=== PATIENT | female | born 1960 | race Caucasian/White ===

== ENCOUNTER 2017-12-30 18:23 | Inpatient (IN) | payer OTHER, MEDICAID ==
[~2017-12-30] VITALS: Ht 162.6 cm; Wt 65.3 kg
--- NOTE | 2017-12-30 18:40 | NUR ---
bb family for psych eval; sent by dr rice. increasing anxiety, restless. rr is even and unlabored with nad noted. skin is warm and dry. awaiting md for eval.
--- NOTE | 2017-12-30 18:50 | NUR ---
PATIENT UNABLE TO URINATE AT THIS MOMENT, ARIELLE LARSON MADE AWARE.
[2017-12-30 18:56] LABS: BASOPHILS % (AUTO) 0.6 % (0.0-2.0); EOSINOPHILS % (AUTO) 3.4 % (0.0-6.0); HEMATOCRIT 35 % (33-45); HEMOGLOBIN 12.2 g/dL (11.5-14.8); LYMPHOCYTES % (AUTO) 38.2 % (20.0-44.0); MEAN CORPUSCULAR HEMOGLOBIN 32 PG (26.0-33.0); MEAN CORPUSCULAR HGB CONC 35 g/dl (31.0-36.0); MEAN CORPUSCULAR VOLUME 91 fL (82-100); MONOCYTES # (AUTO) 0.5 /CMM (0.1-1.30); MONOCYTES % (AUTO) 6.9 % (2.0-12.0); NEUTROPHILS # (AUTO) 4.1 /CMM (1.8-8.9); NEUTROPHILS % (AUTO) 50.9 % (43.0-81.0); PLATELET COUNT (AUTO) 232 /CMM (150-450); RDW COEFFICIENT OF VARIATION 13.4 (11.5-15.0); RED BLOOD CELL COUNT(AUTO) 3.83 MIL/uL (4.0-5.2); WHITE BLOOD COUNT (AUTO) 7.9 K/uL (4.3-11.0)
[2017-12-30 19:12] LABS: ALANINE AMINOTRANSFERASE 59 U/L (12-78); ALBUMIN 3.4 g/dL (3.4-5.0); ALCOHOL, BLOOD < 3 mg/dL (0-0); ALKALINE PHOSPHATASE 87 U/L (46-116); ASPARTATE AMINOTRANSFERASE 28 U/L (15-37); BILIRUBIN,DIRECT 0.1 mg/dL (0.0-0.2); BILIRUBIN,TOTAL 0.3 mg/dL (0.2-1.0); CALCIUM, SERUM 9.1 mg/dL (8.5-10.1); CARBON DIOXIDE 31 mmol/L (21-32); CHLORIDE 104 mmol/L (98-107); CREATININE 0.5 mg/dL (0.6-1.3); GLUCOSE 187 mg/dL (74-106); POTASSIUM 3.5 mmol/L (3.5-5.1); SODIUM SERUM 137 mmol/L (136-145); TOTAL PROTEIN, SERUM 6.5 g/dL (6.4-8.2); UREA NITROGEN, BLOOD 25 mg/dL (7-18)
--- NOTE | 2017-12-30 19:13 | NUR ---
REPORT GIVEN TO MIGUEL ANGEL RN'S FOR DORIAN.
[2017-12-30 19:14] LABS: ACETAMINOPHEN 0 ug/ml (10-30)
--- NOTE | 2017-12-30 19:29 | NUR ---
PER RHIANNON MOMIN, PT IS BEING ADMITTED TO [facility]. RHIANNON MOMIN AND Laureen FROST PA-C ARE AWARE THAT THE PT HAS NOT BEEN ABLE TO GIVE A URINE SAMPLE.
--- NOTE | 2017-12-30 19:35 | NUR ---
PT IS ASSIGNED TO 219-1, DX: PSYCHOSIS NOS, ACCEPTING PSYCHIATRIST: DR. CABRALES.
--- NOTE | 2017-12-30 19:45 | NUR ---
GIVEN REPORT TO MAMADOU MAYFIELD [facility]
--- NOTE | 2017-12-30 20:01 | NUR ---
STATED," WILL FAX OVER PERSONAL MEDS FROM FACILITY." NO FAX RECEIVED.
[2017-12-30] MEDS ORDERED: DONE10TA11 PO (20:24)
[2017-12-30] MEDS ORDERED: QUET25TA PO ×2 (20:24)
[2017-12-30] MEDS ORDERED: ATOR40TA PO (20:24)
[2017-12-30] MEDS ORDERED: ACET-2605 PO (20:24)
[2017-12-30] MEDS ORDERED: INSU100V27 SQ (20:24)
[2017-12-30] MEDS ORDERED: GABA-534 PO (20:24)
[2017-12-30] MEDS ORDERED: VENL150C2 PO (20:24)
[2017-12-30] MEDS ORDERED: TRAZ-182 PO ×2 (20:24)
[2017-12-30] MEDS ORDERED: DIVA125C PO (20:24)
[2017-12-30] MEDS ORDERED: IRBE300T19 PO (20:24)
[2017-12-30] MEDS ORDERED: ACETAMINOPHEN 325 MG TABLET PO PRN (21:00)
[2017-12-30] MEDS ORDERED: MAGNESIUM HYDROXIDE 30 ML UDC PO PRN (21:00)
[2017-12-30] MEDS ORDERED: MAG HYDROX/AL HYDROX/SIMETH 30 ML UDC PO PRN (21:00)
[2017-12-31] MEDS: TEMAZEPAM 7.5 MG CAPSULE PO PRN (00:19)
--- NOTE | 2017-12-31 01:14 | NUR ---
ADMITTED THIS 57 YEARS OLD FEMALE FROM [facility] PATIENT WAS GOT ADMITTED FOR INCREASED AGITATIONS AND AGGRESSIVE BEHAVIOR TOWARDS THE STAFF IN BOARDING CARE. PATIENT IS VOLUNTARY ADMITTED DENIES ANY PAIN OR DISCOMFORT AT THIS TIME ABLE TO FOLLOW THE DIRECTIONS . PATIENT ON BED RESTING SLEEPING PILLS ADMINISTERED PRESCRIBED PATIENT HAS HER OWN INSULIN PUMP ON HER RIGHT SIDE, ACCORDING TO THE ITS RELEASED INSULIN EVERY HOURS.BLOOD SUGAR IS DONE SUGAR IS NORMAL PATIENT IS SLEEPING AT THIS TIME WILL CONTINUES TO MONITOR THE PATIENT FOR SAFETY AND FALL PRECAUTIONS
--- NOTE | 2017-12-31 06:09 | NUR ---
PATIENT HAS A INSULIN PUMP ON HER RIGHT UPPER ARM WHICH IS GIVEN PATIENT EVERY HOUR INSULIN AUTOMATIC ACCORDING TO THE INSULIN PUMP WILL STOP TODAY AT 2 PM THEN NURSE HAVE TO GIVE PATIENT SLIDING SCALE PER PROTOCOL PATIENT SAID IF YOU HAVE ANY QUESTIONS PLEASE CALL HIM HIS NAME IS CAMERON # IS [phone]
--- NOTE | 2017-12-31 06:32 | NUR ---
[id number]: BLOOD SUGAR IS 249 MG/DL, PT HAS INSULIN PUMP ON RIGHT UPPER ARM.
[2017-12-31 07:23] LABS: CHOLESTEROL 160 mg/dL (<200); HDL CHOLESTEROL 75 mg/dL (40-60); LDL 77 mg/dL (0-99); TRIGLYCERIDES 52 mg/dL (30-150)
[2017-12-31 07:28] LABS: CALCIUM, SERUM 8.4 mg/dL (8.5-10.1); CARBON DIOXIDE 26 mmol/L (21-32); CHLORIDE 105 mmol/L (98-107); CREATININE 0.6 mg/dL (0.6-1.3); GLUCOSE 243 mg/dL (74-106); POTASSIUM 3.7 mmol/L (3.5-5.1); SODIUM SERUM 139 mmol/L (136-145); UREA NITROGEN, BLOOD 20 mg/dL (7-18)
[2017-12-31 07:31] LABS: BASOPHILS % (AUTO) 0.3 % (0.0-2.0); EOSINOPHILS % (AUTO) 3.6 % (0.0-6.0); HEMATOCRIT 37 % (33-45); HEMOGLOBIN 12.5 g/dL (11.5-14.8); LYMPHOCYTES # (AUTO) 2.2 /CMM (0.8-4.8); LYMPHOCYTES % (AUTO) 33.3 % (20.0-44.0); MEAN CORPUSCULAR HEMOGLOBIN 31 PG (26.0-33.0); MEAN CORPUSCULAR HGB CONC 34 g/dl (31.0-36.0); MEAN CORPUSCULAR VOLUME 91 fL (82-100); MONOCYTES # (AUTO) 0.5 /CMM (0.1-1.30); MONOCYTES % (AUTO) 7.4 % (2.0-12.0); NEUTROPHILS # (AUTO) 3.7 /CMM (1.8-8.9); NEUTROPHILS % (AUTO) 55.4 % (43.0-81.0); PLATELET COUNT (AUTO) 228 /CMM (150-450); RED BLOOD CELL COUNT(AUTO) 4.03 MIL/uL (4.0-5.2); WHITE BLOOD COUNT (AUTO) 6.6 K/uL (4.3-11.0)
[2017-12-31 07:32] LABS: TROPONIN I < 0.017 ng/mL (0.00-0.056)
[2017-12-31 08:00] VITALS: BP 124/81
[2017-12-31] MEDS: LORAZEPAM 0.5 MG TABLET PO PRN ×2 (11:20→20:52)
--- NOTE | 2017-12-31 11:20 | NUR ---
[id number]: GAVE ATIVAN 0.5 MG PO ANXIETY UPON PT REQUEST AND WILL CONTINUE TO MONITOR FOR EFFECTIVENESS OF MEDICATION
--- NOTE | 2017-12-31 12:11 | NUR ---
[id number]: BLOOD SUGAR IS 369 MG/DL AND HAS INSULIN PUMP.
--- NOTE | 2017-12-31 12:38 | NUR ---
SW spoke to nAeesh James ([phone]), pt's , and discussed the pt and how she has been adjusting. SW informed him about visiting hours, the medication list and went over the assessment of the pt with him to verify the accuracy of the information.
[2017-12-31] MEDS: DIVALPROEX SODIUM 125 MG CAP.SPRINK PO SCH ×2 (12:41→17:42)
[2017-12-31] MEDS: QUETIAPINE FUMARATE 25 MG TABLET PO SCH ×2 (12:42→17:41)
[2017-12-31] MEDS: busPIRone 5 MG TABLET PO SCH ×2 (12:42→17:42)
--- NOTE | 2017-12-31 14:00 | NUR ---
[id number] NOTIFIED DR. ROGERS ABOUT CHEST X-RAY AND CT OF THE HEAD RESULTS. NO NEW ORDERS GIVEN AT THIS TIME
--- NOTE | 2017-12-31 14:12 | NUR ---
[id number]: NOTIFIED DR. ROGERS REGARDING PT HAVING AN INSULIN PUMP. DR. ROGERS WILL BE TURN THE INSULIN PUMP OFF AND PLACE PT ON MODERATE INSULIN.
--- NOTE | 2017-12-31 14:51 | NUR ---
Initial Discharge Plan: Pt currently resides at [facility] located at [address] [place] [id number]; ([phone]). Per pt and her DPOA, they would like the pt to return to her board and care. SW will work with the pt, the DPOA and the MD regarding appropriate discharge plans. SW will form a safe and proper discharge.
[2017-12-31] MEDS ORDERED: DEXTROSE 50%-WATER 50 ML DISP.SYRIN IV PRN (15:00)
[2017-12-31 16:17] VITALS: BP 116/79
[2017-12-31] MEDS ORDERED: DIVALPROEX SODIUM 125 MG CAP.SPRINK PO SCH (17:00)
[2017-12-31] MEDS: INSULIN REGULAR, HUMAN 100 UNIT/ML 3 ML VIAL SQ PRN ×2 (17:26→21:38)
--- NOTE | 2017-12-31 17:26 | NUR ---
[id number]: BLOOD SUGAR IS 472 MG/DL AND GAVE 15 UNITS OF REGULAR INSULIN. NOTIFIED DR. ROGERS.
[2017-12-31] MEDS: BLOOD SUGAR DIAGNOSTIC 1 EACH STRIP VI SCH ×2 (17:33→21:32)
[2017-12-31] MEDS: GABAPENTIN 300 MG CAPSULE PO SCH (17:42)
--- NOTE | 2017-12-31 18:30 | NUR ---
[id number]: TOOK PT'S INSULIN PUMP HOME.
[2017-12-31 20:59] VITALS: BP 96/60
[2017-12-31] MEDS: ATORVASTATIN 40 MG TABLET PO SCH (21:22)
[2017-12-31 23:00] VITALS: BP 110/65
[2018-01-01] MEDS: TEMAZEPAM 7.5 MG CAPSULE PO PRN (00:18)
[2018-01-01] MEDS: BLOOD SUGAR DIAGNOSTIC 1 EACH STRIP VI SCH ×4 (07:55→22:12)
[2018-01-01] MEDS: INSULIN REGULAR, HUMAN 100 UNIT/ML 3 ML VIAL SQ PRN ×3 (07:58→17:44)
[2018-01-01 08:00] VITALS: BP 103/63
[2018-01-01] MEDS: DIVALPROEX SODIUM 125 MG CAP.SPRINK PO SCH ×4 (08:20→16:14)
[2018-01-01] MEDS: busPIRone 5 MG TABLET PO SCH ×3 (08:20→16:14)
[2018-01-01] MEDS: GABAPENTIN 300 MG CAPSULE PO SCH ×3 (08:20→16:14)
[2018-01-01] MEDS: QUETIAPINE FUMARATE 25 MG TABLET PO SCH ×3 (08:20→16:14)
[2018-01-01] MEDS ORDERED: IRBESARTAN (150MG) 150 MG TABLET PO SCH (08:30)
--- NOTE | 2018-01-01 08:55 | NUR ---
SW spoke to Megha Copeland ([phone]), pt's dental insurance biller, and discussed sending daily clinicals and calling once the pt is discharged so that transportation can be set up.
[2018-01-01] MEDS: VALSARTAN 80 MG TABLET PO SCH (09:00)
--- NOTE | 2018-01-01 09:21 | NUR ---
BEBE faxed a clinical review to Megha Kemp ([phone]), pt's medical insurance verifier at [facility], at the fax #: [phone].
[2018-01-01 16:00] VITALS: BP 101/64
--- NOTE | 2018-01-01 19:55 | NUR ---
GPS RN NOTES PT. AT BED SIDE , FEED YOGURT , SHOWER GIVEN TO THE PATIENT ALL HYGINE PROVIDED , ALL NEEDS ATTENDED AND ANTICIPATED , WILL CONTINUTY OF CARE.
[2018-01-01] MEDS: ATORVASTATIN 40 MG TABLET PO SCH (21:46)
[2018-01-01 21:53] VITALS: BP 90/55
[2018-01-01] MEDS: *INSULIN REGULAR(HUMULIN R)HUM 100 UNIT/ML VIAL SQ PRN (22:09)
[2018-01-01] MEDS ORDERED: INSULIN GLARGINE, 100 UNIT/ML CARTRIDGE SQ ONE (22:17)
[2018-01-01] MEDS: INSULIN GLARGINE, 100 UNIT/ML CARTRIDGE SQ SCH (22:33)
[2018-01-01 23:00] VITALS: BP 105/62
[2018-01-02] MEDS: TEMAZEPAM 7.5 MG CAPSULE PO PRN (02:02)
[2018-01-02] MEDS: LORAZEPAM 0.5 MG TABLET PO PRN ×2 (06:02→13:34)
--- NOTE | 2018-01-02 06:12 | NUR ---
GPS RN NOTES PT. NOTED TO VERY ANXIOUS AGGRESSIVE VERBALLY ABUSUIVE, KICKING HITTING STAFF, TRYING TO GET OUT THE BED, BANGING ARMS AND LEGS WITH SIDE RAIL OF THE BED, NOT FOLLOWING ANY REDIRECTIONS, ATIVAN 0.5 MG PO PRN GIVEN , WILL CONTINUE TO MONITOR.
--- NOTE | 2018-01-02 06:46 | NUR ---
GPS RN NOTES DURING SHIFT PT. BLOOD SUGAR AT 2200 # BS 586 MG/DL , 1O U / RGULAR INSULLIN AND 15 UNITS OF LANTUS GIVEN , RECHECK BLOOD SUGAR AT 0011 # BS 367 MG/DL , RECHECK BLOOD SUGAR AT 0306 # BS 0209 , RECHECK BLOOD SUGAR AT 0545 # BS 156 MG/DL, NO ACUTE DISTRESS NOTED DENIES ANY DISCOMFORT, CHARGE NURSE MADE AWARE , ENDORSE TO NEXT SHIFT FOR CONTINUTY OF CARE.
[2018-01-02] MEDS: INSULIN REGULAR, HUMAN 100 UNIT/ML 3 ML VIAL SQ PRN ×3 (07:54→17:31)
[2018-01-02] MEDS: BLOOD SUGAR DIAGNOSTIC 1 EACH STRIP VI SCH ×4 (07:55→22:29)
[2018-01-02] MEDS: QUETIAPINE FUMARATE 25 MG TABLET PO SCH ×3 (08:12→16:05)
[2018-01-02] MEDS: VALSARTAN 80 MG TABLET PO SCH (08:12)
[2018-01-02] MEDS: GABAPENTIN 300 MG CAPSULE PO SCH ×3 (08:12→16:05)
[2018-01-02] MEDS: busPIRone 5 MG TABLET PO SCH ×3 (08:12→16:05)
[2018-01-02] MEDS: DIVALPROEX SODIUM 125 MG CAP.SPRINK PO SCH ×3 (08:12→16:05)
[2018-01-02 08:24] VITALS: BP 123/72
--- NOTE | 2018-01-02 08:45 | NUR ---
GPS RN NOTE: PT IN THE ROOM IN THE CHAIR, COMPLIANT WITH MEDICATIONS, BS 166MG/DL 2 UNITS GIVEN PT ATE BREAKFAST, CONFUSED , RESTLESS , WINGING HER LEGS .ALL HYGIENE PROVIDED WITH 1;1 SITTER .
--- NOTE | 2018-01-02 10:12 | NUR ---
GPS RN NOTE: PT TOOK A SHOWER WITH A HELP OF 1:1 SITTER
--- NOTE | 2018-01-02 11:36 | NUR ---
GPS RN NOTE: PT WALK WITH 1:1 SITTER,SEEN BY PT NO PT NEEDED ONLY WALK WITH SITTER, PT CALM AT THIS TIME WILL CONTINUE MONITORING.
--- NOTE | 2018-01-02 12:04 | NUR ---
SW spoke to Aneesh James ([phone]), pt's , yesterday and answered some questions that he had regarding his .
--- NOTE | 2018-01-02 12:05 | NUR ---
BEBE called the pt's , Aneesh James ([phone]), and provided him with more information and assured him that the concerns he listed will be addressed.
--- NOTE | 2018-01-02 12:05 | NUR ---
BEBE faxed a clinical review to Megha Kemp ([phone]), pt's insurance agent at [facility], at the fax #: [phone].
--- NOTE | 2018-01-02 13:37 | NUR ---
GPS RN NOTE: PT IN THE ROOM CRYING, RESTLESS, UPSET, ATIVAN 0.5 MG PO PRN GIVEN WILL CONTINUE MONITORING
[2018-01-02 16:00] VITALS: BP 119/62
[2018-01-02 20:00] VITALS: BP 118/65
[2018-01-02] MEDS: ATORVASTATIN 40 MG TABLET PO SCH (22:00)
[2018-01-02] MEDS: INSULIN GLARGINE, 100 UNIT/ML CARTRIDGE SQ SCH (22:29)
[2018-01-03] MEDS: BLOOD SUGAR DIAGNOSTIC 1 EACH STRIP VI SCH ×4 (07:44→22:32)
[2018-01-03 08:00] VITALS: BP 144/67
[2018-01-03] MEDS: VALSARTAN 80 MG TABLET PO SCH (08:11)
[2018-01-03] MEDS: GABAPENTIN 300 MG CAPSULE PO SCH ×3 (08:11→16:42)
[2018-01-03] MEDS: busPIRone 5 MG TABLET PO SCH ×3 (08:11→16:42)
[2018-01-03] MEDS: DIVALPROEX SODIUM 125 MG CAP.SPRINK PO SCH ×3 (08:11→16:42)
[2018-01-03] MEDS: QUETIAPINE FUMARATE 25 MG TABLET PO SCH ×3 (08:12→16:42)
[2018-01-03] MEDS: INSULIN REGULAR, HUMAN 100 UNIT/ML 3 ML VIAL SQ PRN ×2 (08:19→12:13)
--- NOTE | 2018-01-03 11:44 | NUR ---
UR Note: BEBE faxed a clinical review to Megha Kemp ([phone]), pt's deputy insurance commissioner at [facility], at the fax #: [phone].
[2018-01-03] MEDS: LORAZEPAM 0.5 MG TABLET PO PRN (14:06)
--- NOTE | 2018-01-03 14:10 | NUR ---
NURSING NOTE: PT STARTED SWINGING AT HER 1;1 SITTER FOR NO REASON, BECAME AGITATED FOR NO REASON, STATED SHE NEEDED SOMETHING TO HELP HER CALM DOWN, ATIVAN 0.5MG PO WAS GIVEN TO HELP CALM PT DOWN, VS STABLE, WILL CONTINUE TO MONITOR FOR SAFETY AND BEHAVIOR.
[2018-01-03 16:00] VITALS: BP 113/67
[2018-01-03 20:00] VITALS: BP 116/51
[2018-01-03] MEDS ORDERED: QUETIAPINE FUMARATE 25 MG TABLET PO SCH (22:00)
[2018-01-03] MEDS: ATORVASTATIN 40 MG TABLET PO SCH (22:32)
[2018-01-03] MEDS: TEMAZEPAM 7.5 MG CAPSULE PO PRN (22:32)
[2018-01-03] MEDS: INSULIN GLARGINE, 100 UNIT/ML CARTRIDGE SQ SCH (22:33)
[2018-01-03] MEDS: *INSULIN REGULAR(HUMULIN R)HUM 100 UNIT/ML VIAL SQ PRN (22:34)
[2018-01-04 07:04] LABS: BASOPHILS % (AUTO) 0.4 % (0.0-2.0); EOSINOPHILS % (AUTO) 3.7 % (0.0-6.0); HEMATOCRIT 40 % (33-45); HEMOGLOBIN 13.4 g/dL (11.5-14.8); LYMPHOCYTES # (AUTO) 1.9 /CMM (0.8-4.8); LYMPHOCYTES % (AUTO) 29.4 % (20.0-44.0); MEAN CORPUSCULAR HEMOGLOBIN 31 PG (26.0-33.0); MEAN CORPUSCULAR HGB CONC 33 g/dl (31.0-36.0); MEAN CORPUSCULAR VOLUME 93 fL (82-100); MONOCYTES # (AUTO) 0.5 /CMM (0.1-1.30); MONOCYTES % (AUTO) 7.8 % (2.0-12.0); NEUTROPHILS # (AUTO) 3.8 /CMM (1.8-8.9); NEUTROPHILS % (AUTO) 58.7 % (43.0-81.0); PLATELET COUNT (AUTO) 281 /CMM (150-450); RDW COEFFICIENT OF VARIATION 13.9 (11.5-15.0); RED BLOOD CELL COUNT(AUTO) 4.32 MIL/uL (4.0-5.2); WHITE BLOOD COUNT (AUTO) 6.4 K/uL (4.3-11.0)
[2018-01-04] MEDS: BLOOD SUGAR DIAGNOSTIC 1 EACH STRIP VI SCH ×4 (07:35→21:42)
[2018-01-04] MEDS: INSULIN REGULAR, HUMAN 100 UNIT/ML 3 ML VIAL SQ PRN ×3 (07:36→21:50)
[2018-01-04 07:49] LABS: ALBUMIN 3.7 g/dL (3.4-5.0); BILIRUBIN,TOTAL 0.9 mg/dL (0.2-1.0); CALCIUM, SERUM 8.8 mg/dL (8.5-10.1); CREATININE 0.6 mg/dL (0.6-1.3); MAGNESIUM 1.8 mg/dL (1.8-2.4); POTASSIUM 3.5 mmol/L (3.5-5.1); TOTAL PROTEIN, SERUM 7.1 g/dL (6.4-8.2)
[2018-01-04 08:00] VITALS: BP_SYST 119; BP_SYST 120; BP_DIAS 68; BP_DIAS 90
[2018-01-04] MEDS: DIVALPROEX SODIUM 125 MG CAP.SPRINK PO SCH ×3 (09:08→16:41)
[2018-01-04] MEDS: busPIRone 5 MG TABLET PO SCH ×3 (09:09→16:43)
[2018-01-04] MEDS: QUETIAPINE FUMARATE 25 MG TABLET PO SCH (09:09)
[2018-01-04] MEDS: VALSARTAN 80 MG TABLET PO SCH (09:09)
[2018-01-04] MEDS: GABAPENTIN 300 MG CAPSULE PO SCH ×3 (09:09→16:44)
--- NOTE | 2018-01-04 09:10 | NUR ---
Dr. Verdugo notified about the result of repeat EKG.
[2018-01-04] MEDS: BENZTROPINE MESYLATE (1 MG) 1 MG TABLET PO SCH ×2 (12:21→16:43)
[2018-01-04] MEDS: risperiDONE LIQUID 1 MG/ML ML PO SCH ×2 (14:04→16:44)
[2018-01-04 16:00] VITALS: BP 139/76
[2018-01-04 20:00] VITALS: BP 130/58
--- NOTE | 2018-01-04 20:00 | NUR ---
GPS RN NOTE: RECEIVED PATIENT AWAKE IN BED WITH AT BEDSIDE VISITING. PATIENT CONFUSED BUT CALM ORIENTED X1 WITHOUT COMPLAINT AND IN NO APPARENT DISTRESS, HAS 1:1 SITTER. WILL CONTINUE TO MONITOR Q15 FOR COMFORT AND SAFETY.
[2018-01-04] MEDS: INSULIN GLARGINE, 100 UNIT/ML CARTRIDGE SQ SCH (21:56)
[2018-01-04] MEDS: MAGNESIUM OXIDE 400 MG TABLET PO SCH (21:59)
[2018-01-04] MEDS: ATORVASTATIN 40 MG TABLET PO SCH (21:59)
--- NOTE | 2018-01-05 03:07 | NUR ---
ACCUCHECK 220 MG/DL @0300.
[2018-01-05] MEDS: LORAZEPAM 0.5 MG TABLET PO PRN (03:23)
--- NOTE | 2018-01-05 03:53 | NUR ---
AT 0300 PATIENT WOKE CONFUSED AND BEGAN YELLING AT 1:1 SITTER THAT SHE NEEDED TO GO HOME AND GO TO WORK. PATIENT GIVEN ATIVAN PRN 0323 FOR ANXIETY AFTER ATTEMPTS AT REALITY ORIENTATION FAILED. PATIENT HAS BECOME CALMER AND STATES SHE WANTS TO TRY TO GO BACK TO SLEEP. WILL CONTINUE TO MONITOR FOR COMFORT AND SAFETY.
[2018-01-05] MEDS: BLOOD SUGAR DIAGNOSTIC 1 EACH STRIP VI SCH ×4 (07:28→21:43)
[2018-01-05 08:00] VITALS: BP 100/63
[2018-01-05] MEDS: busPIRone 5 MG TABLET PO SCH ×3 (08:25→16:53)
[2018-01-05] MEDS: DIVALPROEX SODIUM 125 MG CAP.SPRINK PO SCH ×3 (08:25→16:53)
[2018-01-05] MEDS: VALSARTAN 80 MG TABLET PO SCH (08:25)
[2018-01-05] MEDS: BENZTROPINE MESYLATE (1 MG) 1 MG TABLET PO SCH ×3 (08:25→16:53)
[2018-01-05] MEDS: GABAPENTIN 300 MG CAPSULE PO SCH ×3 (08:25→16:53)
[2018-01-05] MEDS: risperiDONE LIQUID 1 MG/ML ML PO SCH ×3 (08:33→16:56)
[2018-01-05] MEDS: INSULIN REGULAR, HUMAN 100 UNIT/ML 3 ML VIAL SQ PRN ×3 (08:33→17:39)
[2018-01-05 15:59] VITALS: BP 100/69
--- NOTE | 2018-01-05 19:31 | NUR ---
GPS/RN-NOTES F/U WITH RESPIRATORY REGARDING THE EKG ORDER. PER LUCÍA (RESPIRATORY STAFF) HE WILL SEND THE STAFF TO MAKE IT DONE. ENDORSE TO PALLIATIVE CARE PHYSICIAN FOR F/U AND CONTINUITY OF CARE.
--- NOTE | 2018-01-05 20:11 | NUR ---
GPS-RN PATIENT REFUSED EKG, PATIENT IS VERY COMBATIVE, HITTING AND KICKING AT STAFF & RT. EXPLAINED RISKS AND BENEFITS. OFFERED X3, WILL NOTIFY MD. CHARGE NURSE MADE AWARE.
[2018-01-05 20:25] VITALS: BP 139/69
[2018-01-05] MEDS: MAGNESIUM OXIDE 400 MG TABLET PO SCH (21:40)
[2018-01-05] MEDS: ATORVASTATIN 40 MG TABLET PO SCH (21:40)
[2018-01-05] MEDS: INSULIN GLARGINE, 100 UNIT/ML CARTRIDGE SQ SCH (21:48)
[2018-01-05] MEDS: TEMAZEPAM 7.5 MG CAPSULE PO PRN (21:57)
[2018-01-06] MEDS: BLOOD SUGAR DIAGNOSTIC 1 EACH STRIP VI SCH ×4 (07:52→22:15)
[2018-01-06] MEDS: INSULIN REGULAR, HUMAN 100 UNIT/ML 3 ML VIAL SQ PRN ×2 (08:56→12:03)
[2018-01-06] MEDS: busPIRone 5 MG TABLET PO SCH ×3 (08:57→17:12)
[2018-01-06] MEDS: GABAPENTIN 300 MG CAPSULE PO SCH ×3 (08:57→17:12)
[2018-01-06] MEDS: BENZTROPINE MESYLATE (1 MG) 1 MG TABLET PO SCH ×3 (08:57→17:12)
[2018-01-06] MEDS: DIVALPROEX SODIUM 125 MG CAP.SPRINK PO SCH ×3 (09:00→17:12)
[2018-01-06] MEDS: VALSARTAN 80 MG TABLET PO SCH (09:00)
[2018-01-06] MEDS: risperiDONE LIQUID 1 MG/ML ML PO SCH ×3 (09:09→18:26)
[2018-01-06] MEDS: LORAZEPAM 0.5 MG TABLET PO PRN (09:09)
--- NOTE | 2018-01-06 12:00 | NUR ---
KEN ORDERED ANOTHER BAG OF NS 1000 AT 100 ML/HR. Addendum: 01/06/18 at 1735 by PIYUSH CAT RN CHARTED ON WRONG PATIENT
--- NOTE | 2018-01-06 15:47 | NUR ---
SW met with Eliza ([phone]) from [facility] regarding the pt. They are currently unsure about whether or not they will be accepting the pt back due to her aggression.
--- NOTE | 2018-01-06 15:58 | NUR ---
UR Note: BEBE faxed a clinical review to Megha Kemp ([phone]), pt's insurance processor at [facility], at the fax #: [phone].
[2018-01-06 16:00] VITALS: BP 100/60
[2018-01-06 20:00] VITALS: BP 111/81
[2018-01-06] MEDS: ATORVASTATIN 40 MG TABLET PO SCH (22:01)
[2018-01-06] MEDS: TEMAZEPAM 7.5 MG CAPSULE PO PRN (22:02)
[2018-01-06] MEDS: MAGNESIUM OXIDE 400 MG TABLET PO SCH (22:02)
[2018-01-06] MEDS: *INSULIN REGULAR(HUMULIN R)HUM 100 UNIT/ML VIAL SQ PRN (22:17)
[2018-01-06] MEDS: INSULIN GLARGINE, 100 UNIT/ML CARTRIDGE SQ SCH (22:18)
[2018-01-07] MEDS: INSULIN REGULAR, HUMAN 100 UNIT/ML 3 ML VIAL SQ PRN ×4 (07:26→23:10)
[2018-01-07] MEDS: BLOOD SUGAR DIAGNOSTIC 1 EACH STRIP VI SCH ×4 (07:27→22:01)
[2018-01-07 08:00] VITALS: BP 92/66
[2018-01-07] MEDS: busPIRone 5 MG TABLET PO SCH ×3 (08:00→17:00)
[2018-01-07] MEDS: risperiDONE LIQUID 1 MG/ML ML PO SCH ×3 (08:00→17:00)
[2018-01-07] MEDS: BENZTROPINE MESYLATE (1 MG) 1 MG TABLET PO SCH ×3 (08:00→17:00)
[2018-01-07] MEDS: VALSARTAN 80 MG TABLET PO SCH (08:01)
[2018-01-07] MEDS: GABAPENTIN 300 MG CAPSULE PO SCH ×4 (08:01→21:35)
[2018-01-07] MEDS: DIVALPROEX SODIUM 125 MG CAP.SPRINK PO SCH ×3 (08:01→17:00)
--- NOTE | 2018-01-07 11:03 | NUR ---
UR Note: BEBE faxed a clinical review to Megha Kemp ([phone]), pt's healthcare insurance sales agent at [facility], at the fax #: [phone].
[2018-01-07 16:00] VITALS: BP 111/59
--- NOTE | 2018-01-07 17:17 | NUR ---
gps county supervisor: notes held pm meds due to sleepiness and no agitation notes. sitter remains at bedside. will continue to monitor. vss.
[2018-01-07 20:00] VITALS: BP 117/85
[2018-01-07] MEDS: MAGNESIUM OXIDE 400 MG TABLET PO SCH (22:00)
[2018-01-07] MEDS: ATORVASTATIN 40 MG TABLET PO SCH (22:00)
[2018-01-07] MEDS: INSULIN GLARGINE, 100 UNIT/ML CARTRIDGE SQ SCH (22:00)
--- NOTE | 2018-01-07 22:01 | NUR ---
GPS RN NOTES BG 63. PT. REFUSED SANDWICH. 8 OZ OF ORANGE JUICE GIVEN. WILL RECHECK BG @2300.
--- NOTE | 2018-01-07 23:00 | NUR ---
GPS RN NOTE BG 136. 2 UNIT OF REGULAR INSULIN GIVEN ORDERED. PT. REFUSED LANTUS. WILL CONTINUE TO MONITOR FOR SAFETY.
[2018-01-08] MEDS: TEMAZEPAM 7.5 MG CAPSULE PO PRN (02:37)
[2018-01-08 07:51] LABS: BASOPHILS % (AUTO) 0.2 % (0.0-2.0); EOSINOPHILS % (AUTO) 1.7 % (0.0-6.0); HEMATOCRIT 40 % (33-45); HEMOGLOBIN 13.5 g/dL (11.5-14.8); LYMPHOCYTES # (AUTO) 1.7 /CMM (0.8-4.8); LYMPHOCYTES % (AUTO) 21.9 % (20.0-44.0); MEAN CORPUSCULAR HEMOGLOBIN 31 PG (26.0-33.0); MEAN CORPUSCULAR HGB CONC 34 g/dl (31.0-36.0); MEAN CORPUSCULAR VOLUME 93 fL (82-100); MONOCYTES # (AUTO) 0.6 /CMM (0.1-1.30); MONOCYTES % (AUTO) 7.9 % (2.0-12.0); NEUTROPHILS # (AUTO) 5.2 /CMM (1.8-8.9); NEUTROPHILS % (AUTO) 68.3 % (43.0-81.0); PLATELET COUNT (AUTO) 244 /CMM (150-450); RDW COEFFICIENT OF VARIATION 13.6 (11.5-15.0); RED BLOOD CELL COUNT(AUTO) 4.31 MIL/uL (4.0-5.2); WHITE BLOOD COUNT (AUTO) 7.6 K/uL (4.3-11.0)
[2018-01-08] MEDS: BLOOD SUGAR DIAGNOSTIC 1 EACH STRIP VI SCH ×4 (07:54→21:52)
[2018-01-08 08:00] VITALS: BP_SYST 117; BP_SYST 141; BP_DIAS 63; BP_DIAS 76
[2018-01-08 08:01] LABS: ALBUMIN 3.5 g/dL (3.4-5.0); BILIRUBIN,TOTAL 0.7 mg/dL (0.2-1.0); CALCIUM, SERUM 8.7 mg/dL (8.5-10.1); CREATININE 0.7 mg/dL (0.6-1.3); MAGNESIUM 1.8 mg/dL (1.8-2.4); POTASSIUM 4.5 mmol/L (3.5-5.1); TOTAL PROTEIN, SERUM 6.7 g/dL (6.4-8.2)
[2018-01-08] MEDS: INSULIN REGULAR, HUMAN 100 UNIT/ML 3 ML VIAL SQ PRN ×3 (08:09→17:54)
--- NOTE | 2018-01-08 08:15 | NUR ---
GPS/RN-NOTES PATIENT BLOOD SUGAR WAS 357MG/DL, 15 UNITS OF R INSULIN GIVEN ORDERED.WILL CONT. MONITORING.
[2018-01-08] MEDS: BENZTROPINE MESYLATE (1 MG) 1 MG TABLET PO SCH ×3 (08:18→16:35)
[2018-01-08] MEDS: VALSARTAN 80 MG TABLET PO SCH (08:18)
[2018-01-08] MEDS: GABAPENTIN 300 MG CAPSULE PO SCH ×4 (08:18→20:58)
[2018-01-08] MEDS: DIVALPROEX SODIUM 125 MG CAP.SPRINK PO SCH ×3 (08:18→16:35)
[2018-01-08] MEDS: busPIRone 5 MG TABLET PO SCH ×3 (08:18→16:35)
[2018-01-08] MEDS: risperiDONE LIQUID 1 MG/ML ML PO SCH ×3 (08:25→16:36)
--- NOTE | 2018-01-08 09:18 | NUR ---
UR Note: SW spoke to Megha Dinorah ([phone]), pt's property loss insurance claim adjuster, and discussed the process of looking for a locked [facility]pc Facility for the pt. Megha stated that she would have their contractor create an agreement for some of the SNFs that the SW recommended and would inform the SW if the agreement is accepted.
--- NOTE | 2018-01-08 09:19 | NUR ---
UR Note: BEBE faxed a clinical review to Megha Kemp ([phone]), pt's casualty insurance claim adjuster at [facility], at the fax #: [phone].
[2018-01-08] MEDS ORDERED: INSULIN GLARGINE, 100 UNIT/ML CARTRIDGE SQ ONE (10:00)
--- NOTE | 2018-01-08 10:09 | NUR ---
UR Note: SW spoke to Megha Copeland ([phone]), pt's insurance advisor, and told the SW that they are going to go ahead and contact the [facility]term [facility] that Dr. Verdugo goes to and see if they will accept a contract with them for the pt.
--- NOTE | 2018-01-08 10:10 | NUR ---
GPS/RN-NOTES DR. MURPHY MADE AWARE OF PATIENT BLOOD SUGAR OF 411MG/DL. PER DR. MURPHY SHE WILL ORDER 10 UNITS OF LANTUS X1. PATIENT IN THE DAY ROOM UP IN THE JEMAL CHAIR AWAKE,ALERT X1,NO ACUTE DISTRESS NOTED. ON 1:1 MONITORING FOR SAFETY AND BEHAVIOR.
[2018-01-08] MEDS ORDERED: TEMAZEPAM 7.5 MG CAPSULE PO PRN (11:30)
--- NOTE | 2018-01-08 11:49 | NUR ---
GPS/RN-NOTES PATIENT WAS ASSISTED TO SHOWER AND WAS WALK BY TWO STAFF ASSIST IN THE HALLWAY. PATIENT MANAGE TO WALK HALF WAY THE HALLWAY AND GOT WEAKER AND WAS ASSISTED BACK TO CHAIR .NO AGITATION NOTED PATIENT WAS VERY COOPERATIVE AT THIS TIME. STILL ON 1:1 MONITORING FIR SAFETY AND BEHAVIOR.
[2018-01-08 16:00] VITALS: BP 137/95
[2018-01-08] MEDS ORDERED: DIVALPROEX SODIUM 125 MG CAP.SPRINK PO SCH (17:00)
[2018-01-08 20:03] VITALS: BP 157/55
[2018-01-08] MEDS: ATORVASTATIN 40 MG TABLET PO SCH (21:03)
[2018-01-08] MEDS: MAGNESIUM OXIDE 400 MG TABLET PO SCH (21:03)
[2018-01-08] MEDS: *INSULIN REGULAR(HUMULIN R)HUM 100 UNIT/ML VIAL SQ PRN (21:57)
--- NOTE | 2018-01-09 06:48 | NUR ---
GPS-RN PATIENT'S REQUESTED TO REMOVE GLUCOSE MONITORING SENSOR ON HER RIGHT UPPER ARM AND HE STATED THAT IT WAS ALREADY . ASSESSED BY CHARGE AND PRIMARY NURSE THE SENSOR IS ATTACHED TO THE SKIN AND WE ARE NOT TRAINED TO REMOVE GLUCOSE SENSOR. WILL ENDORSE TO THE DAY SHIFT NURSE FOR THE TO REMOVE BY HIMSELF.
[2018-01-09] MEDS: BLOOD SUGAR DIAGNOSTIC 1 EACH STRIP VI SCH ×4 (07:08→21:35)
[2018-01-09] MEDS: INSULIN REGULAR, HUMAN 100 UNIT/ML 3 ML VIAL SQ PRN ×3 (07:10→17:20)
[2018-01-09 08:00] VITALS: BP 108/64
[2018-01-09] MEDS: BENZTROPINE MESYLATE (1 MG) 1 MG TABLET PO SCH ×3 (08:16→16:27)
[2018-01-09] MEDS: busPIRone 5 MG TABLET PO SCH ×3 (08:16→16:27)
[2018-01-09] MEDS: GABAPENTIN 300 MG CAPSULE PO SCH ×4 (08:16→22:03)
[2018-01-09] MEDS: risperiDONE LIQUID 1 MG/ML ML PO SCH ×3 (08:16→16:26)
[2018-01-09] MEDS: VALSARTAN 80 MG TABLET PO SCH (08:17)
[2018-01-09] MEDS ORDERED: DIVALPROEX SODIUM 125 MG CAP.SPRINK PO SCH (09:00)
--- NOTE | 2018-01-09 11:42 | NUR ---
UR Note: BEEB faxed a clinical review to Megha Kemp ([phone]), pt's health insurance specialist at [facility], at the fax #: [phone].
--- NOTE | 2018-01-09 11:44 | NUR ---
UR Note: BEBE spoke to Megha Copeland ([phone]), pt's unemployment insurance hearing officer, regarding an update. BEBE was informed that [facility] is unable to make a DAYDAY with psych patients. Megha stated that she was going to contact [facility] and then call the SW back.
--- NOTE | 2018-01-09 11:45 | NUR ---
BEBE called the pt's , Aneesh James ([phone]), and left him a voicemail with updates regarding the discharge plan to have the pt go to a [place] [facility] [place].
[2018-01-09] MEDS: DIVALPROEX SODIUM 125 MG CAP.SPRINK PO SCH ×2 (13:03→16:27)
[2018-01-09] MEDS: OXCARBAZEPINE 150 MG TABLET PO SCH ×2 (13:03→16:27)
--- NOTE | 2018-01-09 13:05 | NUR ---
SW spoke to Aneesh James ([phone]), pt's , and discussed other options for the pt's discharge plan because he stated that [facility] would be too difficult of a placement for him.
[2018-01-09 16:00] VITALS: BP 110/60
[2018-01-09 20:00] VITALS: BP 114/64
--- NOTE | 2018-01-09 20:00 | NUR ---
GPS RN NOTE, RECEIVED PATIENT AWAKE AND IN BED . NOW VISITING AT BEDSIDE. NO S/S OR COMPLAINTS OF PAIN AT THIS TIME. PATIENT IS DISPLAYING NO S/S OF APPARENT DISTRESS AT THIS TIME. PATIENT BREATHING IS UNLABORED WITH EQUAL RISE AND FALL CHEST. PATIENT IS ALERT AND ORIENTED X 1. PATIENT IS ON ONE TO ONE SITTER FOR SAFETY DUE TO HER CONFUSION. PATIENT CONFUSED, GUARDED, DISORGANIZED, BUT CALM AT THIS TIME. NEEDS REORIENTATION FREQUENTLY. PATIENT BED SIDE RAILS UP X 2 FOR SAFETY, BED IS LOCKED AND LOW, WILL CONTINUE TO MONITOR AND MAINTAIN SAFETY.
[2018-01-09] MEDS: *INSULIN REGULAR(HUMULIN R)HUM 100 UNIT/ML VIAL SQ PRN (22:00)
[2018-01-09] MEDS: MAGNESIUM OXIDE 400 MG TABLET PO SCH (22:03)
[2018-01-09] MEDS: ATORVASTATIN 40 MG TABLET PO SCH (22:03)
[2018-01-10] MEDS: BLOOD SUGAR DIAGNOSTIC 1 EACH STRIP VI SCH ×4 (07:33→22:34)
[2018-01-10] MEDS: INSULIN REGULAR, HUMAN 100 UNIT/ML 3 ML VIAL SQ PRN ×3 (07:46→17:38)
[2018-01-10 08:00] VITALS: BP 107/84
[2018-01-10] MEDS: busPIRone 5 MG TABLET PO SCH ×3 (08:58→17:12)
[2018-01-10] MEDS: OXCARBAZEPINE 150 MG TABLET PO SCH ×3 (08:59→22:34)
[2018-01-10] MEDS: DIVALPROEX SODIUM 125 MG CAP.SPRINK PO SCH (08:59)
[2018-01-10] MEDS: BENZTROPINE MESYLATE (1 MG) 1 MG TABLET PO SCH ×3 (08:59→22:33)
[2018-01-10] MEDS: GABAPENTIN 300 MG CAPSULE PO SCH ×3 (08:59→22:33)
[2018-01-10] MEDS: risperiDONE LIQUID 1 MG/ML ML PO SCH ×3 (09:00→22:34)
[2018-01-10] MEDS: VALSARTAN 80 MG TABLET PO SCH (09:00)
--- NOTE | 2018-01-10 11:18 | NUR ---
UR Note: BEBE faxed a clinical review to Megha Kemp ([phone]), pt's life insurance salesperson at [facility], at the fax #: [phone].
--- NOTE | 2018-01-10 11:18 | NUR ---
UR Note: BEBE spoke to Megha Copeland ([phone]), pt's insurance sales associate, regarding an update. BEBE was informed that [facility] ([facility]) is unable to authorize a DAYDAY with them.
[2018-01-10 16:00] VITALS: BP 110/79
--- NOTE | 2018-01-10 17:01 | NUR ---
GPS/RN-NOTES PATIENT WAS GIVEN SHOWER AND WAS WALK 2X BY TWO STAFF ASSIST IN THE HALLWAY WITH FREQUENT ENCOURAGEMENT REDIRECTIONS.
[2018-01-10 19:30] VITALS: BP 137/90
[2018-01-10] MEDS: MAGNESIUM OXIDE 400 MG TABLET PO SCH (22:34)
[2018-01-10] MEDS: ATORVASTATIN 40 MG TABLET PO SCH (22:34)
[2018-01-10] MEDS: *INSULIN REGULAR(HUMULIN R)HUM 100 UNIT/ML VIAL SQ PRN (22:36)
[2018-01-11] MEDS: GABAPENTIN 300 MG CAPSULE PO SCH ×4 (06:16→21:47)
[2018-01-11] MEDS: BENZTROPINE MESYLATE (1 MG) 1 MG TABLET PO SCH ×4 (06:16→21:47)
[2018-01-11] MEDS: OXCARBAZEPINE 150 MG TABLET PO SCH ×4 (06:16→21:47)
[2018-01-11] MEDS: risperiDONE LIQUID 1 MG/ML ML PO SCH ×4 (06:17→21:48)
[2018-01-11] MEDS: BLOOD SUGAR DIAGNOSTIC 1 EACH STRIP VI SCH ×4 (07:48→22:03)
[2018-01-11 08:00] VITALS: BP 143/82
[2018-01-11] MEDS: INSULIN REGULAR, HUMAN 100 UNIT/ML 3 ML VIAL SQ PRN ×2 (08:38→12:06)
[2018-01-11] MEDS: busPIRone 5 MG TABLET PO SCH ×3 (08:57→16:24)
[2018-01-11] MEDS: VALSARTAN 80 MG TABLET PO SCH (08:57)
[2018-01-11 16:17] VITALS: BP 97/60
[2018-01-11 19:30] VITALS: BP 107/75
[2018-01-11] MEDS: MAGNESIUM OXIDE 400 MG TABLET PO SCH (21:47)
[2018-01-11] MEDS: ATORVASTATIN 40 MG TABLET PO SCH (21:47)
[2018-01-12] MEDS: GABAPENTIN 300 MG CAPSULE PO SCH ×4 (06:16→21:01)
[2018-01-12] MEDS: risperiDONE LIQUID 1 MG/ML ML PO SCH ×4 (06:16→21:02)
[2018-01-12] MEDS: OXCARBAZEPINE 150 MG TABLET PO SCH ×4 (06:16→21:01)
[2018-01-12] MEDS: BENZTROPINE MESYLATE (1 MG) 1 MG TABLET PO SCH ×4 (06:16→21:01)
[2018-01-12] MEDS: BLOOD SUGAR DIAGNOSTIC 1 EACH STRIP VI SCH ×4 (07:52→21:43)
[2018-01-12 08:00] VITALS: BP 158/57
[2018-01-12] MEDS: busPIRone 5 MG TABLET PO SCH ×4 (08:14→21:01)
[2018-01-12] MEDS: VALSARTAN 80 MG TABLET PO SCH (08:15)
[2018-01-12] MEDS: INSULIN REGULAR, HUMAN 100 UNIT/ML 3 ML VIAL SQ PRN ×2 (08:47→12:31)
--- NOTE | 2018-01-12 08:50 | NUR ---
GPS RN BLOOD SUGAR 504. GAVE 15 UNITS OF SLIDING SCALE INSULIN AND CALLED .
--- NOTE | 2018-01-12 09:02 | NUR ---
GPS RN PER DR STAPLES NO NEW ORDER. DR NOEL KEEP MONITORING.
--- NOTE | 2018-01-12 09:43 | NUR ---
GPS RN BLOOD SUGAR 482.
--- NOTE | 2018-01-12 10:40 | NUR ---
GPS RN 1040 BLOOD SUGAR [address] STAPLES NO NEW ORDER.
--- NOTE | 2018-01-12 12:13 | NUR ---
GPS RN 1213 BLOOD SUGAR IS 286 AND 9 UNITS OF REGULAR INSULIN IS GIVEN.
[2018-01-12 16:07] VITALS: BP 137/77
--- NOTE | 2018-01-12 17:00 | NUR ---
GPS RN 1700 BLOOD SUGAR 116 AND NO COVERAGE GIVEN.
[2018-01-12 19:46] VITALS: BP 131/67
[2018-01-12] MEDS: MAGNESIUM OXIDE 400 MG TABLET PO SCH (21:01)
[2018-01-12] MEDS: ATORVASTATIN 40 MG TABLET PO SCH (21:02)
[2018-01-13] MEDS: risperiDONE LIQUID 1 MG/ML ML PO SCH ×4 (06:30→20:16)
[2018-01-13] MEDS: BENZTROPINE MESYLATE (1 MG) 1 MG TABLET PO SCH ×2 (06:30→12:08)
[2018-01-13] MEDS: busPIRone 5 MG TABLET PO SCH ×4 (06:30→20:16)
[2018-01-13] MEDS: GABAPENTIN 300 MG CAPSULE PO SCH (06:30)
[2018-01-13] MEDS: OXCARBAZEPINE 150 MG TABLET PO SCH ×4 (06:33→20:16)
[2018-01-13] MEDS: BLOOD SUGAR DIAGNOSTIC 1 EACH STRIP VI SCH ×4 (06:45→22:22)
--- NOTE | 2018-01-13 06:45 | NUR ---
GPS-RN PATIENT BLOOD SUGAR WAS 536MG/DL, GIVEN 15UNITS OF REGULAR INSULIN. NOTIFIED SAFE AND VAULT MECHANIC RADFORD AND HE STATED THAT JUST ENDORSE TO THE DAY SHIFT SINCE "I DO NOT KNOW THE PATIENT". NO NEW ORDERS GIVEN. PATIENT IS ALERT, AWAKE, MUMBLES SELF. NO ACUTE DISTRESS NOTED. WILL ENDORSE TO THE MORNING NURSE FOR CONTINUITY OF CARE.
[2018-01-13] MEDS: INSULIN REGULAR, HUMAN 100 UNIT/ML 3 ML VIAL SQ PRN ×4 (06:52→22:17)
[2018-01-13 08:00] VITALS: BP 157/108
[2018-01-13] MEDS: VALSARTAN 80 MG TABLET PO SCH (08:18)
--- NOTE | 2018-01-13 09:25 | NUR ---
GPS RN NOTE : PT BS 432 MG/DL NOTIFIED DR STAPLES ORDER TO GIVE ANOTHER 15 UNITS NOW, DR STAPLES AWARE PT NOT ON LONG ACTING INSULIN WILL CONTINUE MONITORING
--- NOTE | 2018-01-13 10:06 | NUR ---
GPS RN NOTE: PT SHOWERED ALL HYGIENE PROVIDED WITH 1;1 SITTER HELP. PT IN THE ROOM SITTING IN THE CHAIR UNABLE TO WALK DUE TO WEAKNESS PT CONFUSED , TEMPERATURE 99.[address] CABRALES NOTIFIED PT CONDITION NO NEW ORDERS AT THIS TIME WILL CONTINUE MONITORING.
--- NOTE | 2018-01-13 11:30 | NUR ---
GPS RN NOTE: PATIENT TEMPERATURE 98.1 WILL CONTINUE MONITORING
--- NOTE | 2018-01-13 11:59 | NUR ---
Aneesh James ([phone]) called the SW and informed her that he is unhappy with the treatment that his is getting in this hospital and the lack of communication. He stated that he wants answers whenever the SW can provide them.
--- NOTE | 2018-01-13 11:59 | NUR ---
UR Note: BEBE faxed a clinical review to Megha Kemp ([phone]), pt's travel insurance agent at [facility], at the fax #: [phone].
--- NOTE | 2018-01-13 12:00 | NUR ---
BEBE called Eliza ([phone]) from [facility] and she stated that she would not take the pt back until she speaks to Dr. Verdugo.
--- NOTE | 2018-01-13 12:04 | NUR ---
UR Note: SW spoke to Megha Copeland ([phone]), pt's personal lines insurance agent, and she stated that the wants the pt in a SNF. She then provided the SW with SNFs that they are already contracted with.
--- NOTE | 2018-01-13 12:04 | NUR ---
BEBE sent a referral to [facility] ([facility]) to the fax number: [phone] with Attn: Dominga.
--- NOTE | 2018-01-13 12:05 | NUR ---
Dominga ([phone]) called the SW and informed her that the pt was denied to their SNF because they cannot meet the level of care that she needs. Addendum: 01/14/18 at 1321 by CHLOÉ SPENCE Dominga ([phone])
--- NOTE | 2018-01-13 12:06 | NUR ---
UR Note: BEBE spoke to Megha Copeland ([phone]), pt's insurance adjuster, and informed her that [facility] denied the pt. Megha then stated that she would be able to send home health to the [facility] if they are willing to take her back.
[2018-01-13] MEDS: GABAPENTIN 100 MG CAPSULE PO SCH ×3 (12:08→20:16)
--- NOTE | 2018-01-13 12:36 | NUR ---
SW called the pt's , Aneesh James ([phone]), and informed him of the most recent updates. She informed him that [facility] denied the pt and that [facility] was willing to send home health to the board and care if she gets discharged back there. told the SW he wants a more concrete reason as to why the SNF denied and then stated that he would be willing to accept the home health with the board and care plan if Dr. Verdugo approves of it.
--- NOTE | 2018-01-13 12:38 | NUR ---
BEBE called Dominga ([phone]) and asked for a more concrete reason as to why the pt was denied admission to the SNF. She stated that she would have her DON review the referral one more time and call the SW back since she did not read the most recent progress notes that were sent over. Addendum: 01/14/18 at 1322 by CHLOÉ SPENCE Dominga ([phone])
--- NOTE | 2018-01-13 13:35 | NUR ---
GPS RN NOTE: DR STAPLES CALLED T/O ORDER LANTUS 15 UNITS HS SQ. ORDER PLACED AND CARED OUT WILL CONTINUE MONITORING.
[2018-01-13 16:00] VITALS: BP 125/54
--- NOTE | 2018-01-13 16:19 | NUR ---
SW spoke to Mr. Reagan ([phone]) from [facility] regarding setting up home health to the facility. He stated that their facility is still not comfortable with taking the pt back as she is a liability and the SW reminded him that legally they would have to provide a 30 day notice.
--- NOTE | 2018-01-13 16:26 | NUR ---
BEBE called the pt's , Aneesh James ([phone]), and provided him with an update regarding the pt.
--- NOTE | 2018-01-13 19:30 | NUR ---
GPS RN NOTE, RECEIVED PATIENT AWAKE AND IN BED, NO S/S OR COMPLAINTS OF PAIN AT THIS TIME. PATIENT IS DISPLAYING NO S/S OF APPARENT DISTRESS AT THIS TIME. PATIENT BREATHING IS UNLABORED WITH EQUAL RISE AND FALL CHEST. PATIENT IS ALERT AND ORIENTED X 1 ON ROOM AIR WITH A SPO2 94%. PATIENT IS CONFUSED, DISORGANIZED, COOPERATIVE, ANXIOUS AT TIMES, AND NEEDS REDIRECTION. PATIENT IS CONFUSED BUT DENIES SUICIDE IDEATIONS AND HOMICIDAL IDEATIONS AT THIS TIME. PATIENT EDUCATED ON THE USE OF THE CALL BEL. PATIENT BED SIDE RAILS UP X 2 FOR SAFETY, BED IS LOCKED AND LOW, WILL CONTINUE TO MONITOR AND MAINTAIN SAFETY WITH THE HELP OF SAFE.
[2018-01-13 19:52] VITALS: BP 125/59
[2018-01-13] MEDS ORDERED: INSULIN GLARGINE, 100 UNIT/ML CARTRIDGE SQ SCH (22:00)
[2018-01-13] MEDS: ATORVASTATIN 40 MG TABLET PO SCH (22:20)
[2018-01-13] MEDS: MAGNESIUM OXIDE 400 MG TABLET PO SCH (22:20)
--- NOTE | 2018-01-13 22:22 | NUR ---
GPS RN NOTE, PERFORMED ACCU CHECK ON PATIENT WITH A BLOOD SUGAR RESULT OF 228. GAVE 6UNITS OF REGULAR INSULIN PER SLIDING SCALE. ALSO GAVE 15 UNITS OF LANTUS ORDERED. WILL CONTINUE TO MONITOR THIS PATIENT.
[2018-01-14 08:00] VITALS: BP 116/64
[2018-01-14] MEDS: GABAPENTIN 100 MG CAPSULE PO SCH ×3 (08:11→16:00)
[2018-01-14] MEDS: busPIRone 5 MG TABLET PO SCH ×3 (08:11→16:00)
[2018-01-14] MEDS: risperiDONE LIQUID 1 MG/ML ML PO SCH ×3 (08:12→16:00)
[2018-01-14] MEDS: BLOOD SUGAR DIAGNOSTIC 1 EACH STRIP VI SCH ×2 (08:12→12:17)
[2018-01-14] MEDS: OXCARBAZEPINE 150 MG TABLET PO SCH ×3 (08:12→16:00)
[2018-01-14] MEDS: INSULIN REGULAR, HUMAN 100 UNIT/ML 3 ML VIAL SQ PRN ×2 (08:14→12:16)
[2018-01-14] MEDS: VALSARTAN 80 MG TABLET PO SCH (08:19)
[2018-01-14] MEDS ORDERED: BENZTROPINE MESYLATE (1 MG) 1 MG TABLET PO SCH (09:00)
--- NOTE | 2018-01-14 11:00 | NUR ---
UR Note: BEBE faxed a clinical review to Megha Kemp ([phone]), pt's insurance service representative at [facility], at the fax #: [phone].
--- NOTE | 2018-01-14 11:03 | NUR ---
UR Note: SW spoke to Megha Copeland ([phone]), pt's social insurance specialist, and was informed that none of the long-term facilities are accepting the pt.
--- NOTE | 2018-01-14 11:35 | NUR ---
GPS RN NOTE: DR CABRALES ORDER FOR UA, URINE CULTURE ORDER PLACED, URINE COLLECTED WAS PICKED UP BY LAB.
[2018-01-14 12:33] LABS: APPEARANCE,URINE CLOUDY (CLEAR); BILIRUBIN,URINE NEGATIVE (NEGATIVE); BLOOD, URINE 2+ Ery/uL (NEGATIVE); COLOR,URINE YELLOW (YELLOW); KETONES,URINE 2+ (NEGATIVE); LEUKOCYTE ESTERASE ,URINE 1+ (NEGATIVE); NITRITE, URINE POSITIVE (NEGATIVE); PROTEIN,URINE TRACE mg/dl (NEGATIVE); UGLUCOSE 3+ mg/dL (NEGATIVE); UROBILINOGEN,URINE 0.2 EU/dL (0.2)
[2018-01-14 13:03] LABS: BACTERIA,URINE 2+ /HPF (None Seen); RBC,URINE 51-80 /HPF (0-2); SQUAMOUS EPITHELIAL CELL,UR Moderate /HPF (None Seen); WBC,URINE 51-80 /HPF (0-3)
--- NOTE | 2018-01-14 13:22 | NUR ---
BEBE called Dominga ([phone]) from [facility] and was told that she was out and so the BEBE left a message with the DON.
--- NOTE | 2018-01-14 14:20 | NUR ---
GPS RN NOTE: Miguel RADFORD NOTIFIED OF URINE RESULT UTI, WILL PUT ORDER FOR ANTIBIOTICS, ORDER FOR GLUCERNA BID. WILL CONTINUE MONITORING
[2018-01-14 14:30] VITALS: BP 97/57
--- NOTE | 2018-01-14 14:30 | NUR ---
GPS RN NOTE: PT SLEEPING IN THE ROOM WITH HER EYES CLOSED WITH 1:1 SITTER AT THE SIDE , CHECKED VS BP 97/57 P 83, T 97.6, O2 95. BS 251 TRYING TO WAKE HER UP PT WIGGLING HER TOES BU NOT RESPONDING, N.P. RADFORD AT THE SIDE STAT ORDERS OF LABS ORDERED.
--- NOTE | 2018-01-14 14:47 | NUR ---
BEBE sent a referral to [facility] ([facility]) to the fax number: [phone] with Attn: Gaby
--- NOTE | 2018-01-14 14:48 | NUR ---
BEBE called the pt's , Aneesh James ([phone]), and left a voicemail with him.
[2018-01-14 15:16] LABS: ABG BASE EXCESS 2.3 mmol/L; ABG OXYGEN SATURATION 94.4 % (92.0-98.5); ABG PCO2 38.2 mmHg (35.0-45.0); ABG PH 7.454 (7.350-7.450); ABG PO2 75.4 mmHg (75.0-100.0); AaDO2 28.6 mmHg; COHb 0.3 % (0.5-1.5); MetHb 0.5 % (0.0-1.5); O2Hb 93.6 % (94.0-97.0); SITE, ABG Right Radial; VENT MODE, BG room air
[2018-01-14 15:43] VITALS: BP 106/64
[2018-01-14] MEDS ORDERED: SULFAMETH/TRIMETH 800/160 MG 1 UDTAB TABLET PO SCH (16:00)
[2018-01-14 16:19] LABS: CALCIUM, SERUM 9.2 mg/dL (8.5-10.1); CARBON DIOXIDE 27 mmol/L (21-32); CHLORIDE 108 mmol/L (98-107); CREATININE 0.7 mg/dL (0.6-1.3); GLUCOSE 239 mg/dL (74-106); POTASSIUM 3.9 mmol/L (3.5-5.1); SODIUM SERUM 141 mmol/L (136-145); UREA NITROGEN, BLOOD 33 mg/dL (7-18)
[2018-01-14 16:24] LABS: ALANINE AMINOTRANSFERASE 22 U/L (12-78); ALBUMIN 3.1 g/dL (3.4-5.0); ALKALINE PHOSPHATASE 81 U/L (46-116); ASPARTATE AMINOTRANSFERASE 19 U/L (15-37); BILIRUBIN,TOTAL 0.2 mg/dL (0.2-1.0); TOTAL PROTEIN, SERUM 6.3 g/dL (6.4-8.2)
[2018-01-14 16:26] LABS: TROPONIN I < 0.017 ng/mL (0.00-0.056)
--- NOTE | 2018-01-14 16:33 | NUR ---
GPS RN NOTE: PT IN BED OPEN HER EYES AT THE MOMENT VS B/P 106/57 P 83 O2 97, DISTRICT SUPERINTENDENT RADFORD NOTIFIED OF CRITICAL LAB RESULT FOR LACTIC ACID 2.3 ORDER TO TRANSFER TO [facility] START IV 2L NS , ROCEPHIN 2G IV Q24 HR .
[2018-01-14 16:48] VITALS: BP 106/57
[2018-01-14] MEDS ORDERED: GLUCERNA SHAKE 237 ML CAN PO SCH (17:00)
--- NOTE | 2018-01-14 17:00 | NUR ---
GPS RN NOTE: PT DISCHARGE TO TELE ROOM 307 B REPORT GIVEN TO CONY RN TO FOLLOW UP WITH ORDERS. DR CABRALES NOTIFIED WITH ORDER TO DC ALL MEDICATIONS,ORDER PLACED AND CARED OUT , EXIT CARE DONE PRINTED , NOTIFIED. PT BELONGINGS TRANSFER WITH PT.
[2018-01-14 17:16] LABS: BASOPHILS # (AUTO) 0.1 /CMM (0.0-0.2); BASOPHILS % (AUTO) 0.6 % (0.0-2.0); EOSINOPHILS % (AUTO) 0.5 % (0.0-6.0); HEMATOCRIT 36 % (33-45); HEMOGLOBIN 11.9 g/dL (11.5-14.8); LYMPHOCYTES % (AUTO) 17.8 % (20.0-44.0); MEAN CORPUSCULAR HEMOGLOBIN 31 PG (26.0-33.0); MEAN CORPUSCULAR HGB CONC 34 g/dl (31.0-36.0); MEAN CORPUSCULAR VOLUME 93 fL (82-100); NEUTROPHILS # (AUTO) 8.3 /CMM (1.8-8.9); NEUTROPHILS % (AUTO) 72.1 % (43.0-81.0); PLATELET COUNT (AUTO) 258 /CMM (150-450); RDW COEFFICIENT OF VARIATION 14.1 (11.5-15.0); RED BLOOD CELL COUNT(AUTO) 3.86 MIL/uL (4.0-5.2); WHITE BLOOD COUNT (AUTO) 11.5 K/uL (4.3-11.0)
[2018-01-14 17:37] LABS: SERUM AMMONIA 24 umol/L (11-32)
--- NOTE | 2018-01-15 08:32 | NUR ---
Discharge Note: Pt was discharged and admitted to the medical floor for a UTI.
--- NOTE | 2018-01-15 11:58 | NUR ---
BEBE spoke to Megha Copeland ([phone]), pt's risk and insurance consultant, and provided the information for the new heel caser for this pt.
== END 2018-01-14 16:55 | disposition short-term general hospital (02) | DRG 880 ==
LOC: ER 18:26 → GPS 19:38
PROVIDERS: ADMIT Psychiatry & Neurology Psychosomatic Medicine; ATTEND Internal Medicine
DX: F41.9 Anxiety disorder, unspecified (principal); F01.51 Vascular dementia, unspecified severity, with behavioral disturbance; N17.0 Acute kidney failure with tubular necrosis; E11.65 Type 2 diabetes mellitus with hyperglycemia; G93.41 Metabolic encephalopathy; N39.0 Urinary tract infection, site not specified; F23 Brief psychotic disorder; F22 Delusional disorders; F10.11 Alcohol abuse, in remission; E78.5 Hyperlipidemia, unspecified; R94.31 Abnormal electrocardiogram [ECG] [EKG]; T43.595A Adverse effect of other antipsychotics and neuroleptics, initial encounter; Y92.238 Other place in hospital as the place of occurrence of the external cause
CPT/HCPCS: 36415; 36600; 70450-TC; 71045-TC; 80048-TC; 80053-TC; 80061-TC; 80076-TC; 80164-TC; 81000-TC; 82140-TC; 82803-TC; 82962-TC; 83605-TC; 83735-TC; 84484-TC; 85025-TC; 87040-TC; 87081-TC; 87086-TC; 87186-TC; A4606; G0480; J1815; Z7610

== ENCOUNTER 2018-01-14 17:19 | Inpatient (IN) | payer OTHER, MEDICAID ==
[~2018-01-14] VITALS: Ht 167.6 cm; Wt 62.6 kg
[2018-01-14 17:00] VITALS: BP 101/59
--- NOTE | 2018-01-14 17:00 | NUR ---
director televisionrn intern notes Admitted a 57 years old female patient from GPS who came in due to UTI/Hypotension via gurney accompanied by GPS staff. Patient is very lethargic. Robin Elder aware of the admission and ordered Bolus NS x 2 liters then check Lactic Acid. Ordered CT of the head stat. Dr. Verdugo aware of patient being lethargic and per report from GPS RN MD discontinued psych medications. Vital signs checked and recorded. kept patient clean and comfortable in bed. Sitter at bedside for constant monitoring. Skin assessment done and pictures taken and filed in the patient chart. On tele monitor SR heart rate of 75. No facial grimace noted. On room air with 02 sat of 98%. Picked up by laboratory technician for CT of the head. Will continue to monitor accordingly.
[~2018-01-14 17:19] MED LIST: ACET-2605 PO; ATOR40TA PO; DIVA125C PO; DONE10TA11 PO; GABA-534 PO; INSU100V27 SQ; IRBE300T19 PO; QUET25TA PO; TRAZ-182 PO; VENL150C2 PO
[2018-01-14] MEDS ORDERED: IV NS 0.9% 1,000 ML IV PRN (17:30)
[2018-01-14] MEDS ORDERED: CEFTRIAXONE 1 G VIAL IM SCH (17:30)
[2018-01-14] MEDS: CEFTRIAXONE 1 G in IV NS 0.9% 50 ML IV SCH (18:27)
--- NOTE | 2018-01-14 19:03 | NUR ---
cable television access coordinator closing notes All needs provided, attended, and anticipated. Patient still lethargic vital signs within normal limit. Robin Elder PROCESS ENVIRONMENTAL TECHNICIAN made aware of the head CT result. IV still infusing. Sitter at bed side for constant monitoring. Endorsed to next shift RN to continue care. SR on the tele monitor heart rate of 78.
[2018-01-14] MEDS ORDERED: MAG HYDROX/AL HYDROX/SIMETH 30 ML UDC PO PRN (19:30)
[2018-01-14] MEDS ORDERED: HYDROCODONE/APAP 5/325MG 1 EACH TABLET PO PRN (19:30)
[2018-01-14] MEDS ORDERED: DEXTROSE 50%-WATER 50 ML DISP.SYRIN IV PRN (19:30)
[2018-01-14] MEDS ORDERED: MAGNESIUM HYDROXIDE 30 ML UDC PO PRN (19:30)
[2018-01-14] MEDS ORDERED: ACETAMINOPHEN 325 MG TABLET PO PRN (19:30)
[2018-01-14] MEDS ORDERED: Z GUARD REMEDY 2 OZ OINT TP PRN (19:30)
[2018-01-14] MEDS ORDERED: ONDANSETRON HCL/PF 4 MG/2 ML VIAL IVP PRN (19:30)
--- NOTE | 2018-01-14 19:30 | NUR ---
BODY CORPORATE MANAGER OPENING NOTES RECEIVED PATIENT IN BED WITH EYES CLOSED. MOVES ARMS WHEN BEING AWAKEN BUT STILL CONTINUES TO HAVE EYES CLOSED. BREATHING EVEN AND UNLABORED. NO SOB NOTED. NO SIGNS OF PAIN OR DISCOMFORT. NO FACIAL GRIMACING. SKIN DRY AND WARM TO TOUCH. IV ON RIGHT FA @20 INTACT AND PATENT, CURRENTLY RUNNING 1L OF NS BOLUS. ALL OTHER NEEDS ATTENDED TO. CALL LIGHT WITHIN REACH. BED ON LOWEST LOCKED POSITION. WILL CONTINUE TO MONITOR.
[2018-01-14 20:00] VITALS: BP_SYST 92; BP_SYST 96; BP_DIAS 51; BP_DIAS 67
[2018-01-14] MEDS: IV NS 0.9% 1,000 ML IV PRN (20:39)
[2018-01-14 20:45] VITALS: BP 105/72
[2018-01-14] MEDS: BLOOD SUGAR DIAGNOSTIC 1 EACH STRIP IN SCH (21:17)
[2018-01-14] MEDS: INSULIN GLARGINE, 100 UNIT/ML CARTRIDGE SQ SCH (21:57)
[2018-01-14] MEDS: INSULIN REGULAR, HUMAN 100 UNIT/ML 3 ML VIAL SQ PRN (21:58)
[2018-01-14] MEDS: ATORVASTATIN 40 MG TABLET PO SCH (22:04)
[2018-01-14] MEDS: DONEPEZIL 5 MG TABLET PO SCH (22:04)
[2018-01-14 22:15] VITALS: BP 119/64
[2018-01-15] VITALS: BP 140/73
[2018-01-15 00:10] VITALS: BP 140/73
[2018-01-15 04:00] VITALS: BP 127/74
[2018-01-15 06:17] LABS: BASOPHILS % (AUTO) 0.5 % (0.0-2.0); EOSINOPHILS % (AUTO) 1.5 % (0.0-6.0); HEMATOCRIT 34 % (33-45); HEMOGLOBIN 11.3 g/dL (11.5-14.8); LYMPHOCYTES # (AUTO) 2.4 /CMM (0.8-4.8); MEAN CORPUSCULAR HEMOGLOBIN 31 PG (26.0-33.0); MEAN CORPUSCULAR HGB CONC 34 g/dl (31.0-36.0); MEAN CORPUSCULAR VOLUME 94 fL (82-100); MONOCYTES # (AUTO) 0.9 /CMM (0.1-1.30); MONOCYTES % (AUTO) 9.1 % (2.0-12.0); NEUTROPHILS # (AUTO) 5.9 /CMM (1.8-8.9); NEUTROPHILS % (AUTO) 62.9 % (43.0-81.0); PLATELET COUNT (AUTO) 237 /CMM (150-450); RDW COEFFICIENT OF VARIATION 13.8 (11.5-15.0); RED BLOOD CELL COUNT(AUTO) 3.61 MIL/uL (4.0-5.2); WHITE BLOOD COUNT (AUTO) 9.3 K/uL (4.3-11.0)
[2018-01-15] MEDS: BLOOD SUGAR DIAGNOSTIC 1 EACH STRIP IN SCH ×4 (06:34→21:00)
[2018-01-15] MEDS: INSULIN REGULAR, HUMAN 100 UNIT/ML 3 ML VIAL SQ PRN ×4 (06:37→21:05)
[2018-01-15 06:38] LABS: THYROID STIMULATING HORMONE 1.99 uIU/mL (0.358-3.74)
[2018-01-15 06:41] LABS: CALCIUM, SERUM 8.3 mg/dL (8.5-10.1); CREATININE 0.6 mg/dL (0.6-1.3); MAGNESIUM 1.8 mg/dL (1.8-2.4); PHOSPHORUS 2.6 mg/dL (2.5-4.9); POTASSIUM 3.5 mmol/L (3.5-5.1)
--- NOTE | 2018-01-15 07:02 | NUR ---
CLOCK AND WATCH ASSEMBLER CLOSING NOTES PATIENT IN BED WITH EYES OPEN. HAD PERIODS OF AGITATION THROUGHOUT THE NIGHT. VERBALLY RESPONSIVE BUT WITH GARBLED WORDS. BREATHING EVEN AND UNLABORED. NO SOB NOTED. ON 2L OF OXYGEN VIA NC. NO SIGNS OF PAIN OR DISCOMFORT. NO FACIAL GRIMACING. SKIN DRY AND WARM TO TOUCH. IV ON RIGHT FA @20 INTACT AND PATENT, CURRENTLY IV NS @75ML/HR. KEPT CLEAN, DRY AND COMFORTABLE. SITTER AT BEDSIDE. ALL OTHER NEEDS ATTENDED TO. CALL LIGHT WITHIN REACH. BED ON LOWEST LOCKED POSITION. WILL ENDORSE TO ONCOMING NURSE FOR CONTINUITY FOR CARE.
--- NOTE | 2018-01-15 07:30 | NUR ---
RN NOTES PATIENT AWAKE AND ALERT, CONFUSED, IN BED RESTLESS, CAREGIVER AT BEDSIDE, NO S/SX OF PAIN OR DISCOMFORT, KEPT COMFORTABLE, IVF INFUSING AND TOLERATING WELL, NEEDS ATTENDED, SAFETY MEASURES IN PLACED, CALL LIGHT WITHIN REACH, WILL CONTINUE TO MONITOR.
--- NOTE | 2018-01-15 10:00 | NUR ---
RN NOTES AT BEDSIDE, VOICED OUT FRUSTRATION RE: PATIENT CARE FROM GPS. PT JOANIEAL COMPLETED, AT BEDSIDE, INSISTED ON GETTING THE PATIENT OFF THE BED, TRIED TO STAND HER UP MULTIPLE TIMES, PHYSICAL THERAPY AT BEDSIDE. NEEDS ATTENDED AND MET, CALL LIGHT WITHIN REACH, SITTER AT BEDSIDE, WILL CONTINUE TO MONITOR.
[2018-01-15] MEDS: BENZTROPINE MESYLATE (1 MG) 1 MG TABLET PO SCH ×2 (10:42→17:24)
[2018-01-15] MEDS: risperiDONE-M 0.5 MG TAB.RAPDIS PO SCH ×2 (10:42→17:24)
--- NOTE | 2018-01-15 11:50 | NUR ---
RN NOTES AM AND SKIN CARE RENDERED RIGHT AFTER PHYSICAL THERAPY EVALUATION AND AFTER PATIENT ATE BREAKFAST, DURING ADLS, PATIENT NOTED TO HAVE REDNESS ON HER BUTTOCKS. PHOTO TAKEN AND PLACED IN CHART. HEELS CLEAR AND INTACT, WOUND CARE CONSULT TRIGGERED. Z-GUARD APPLIED, REPOSITIONED TO RIGHT LATERAL SIDE. OFFLOADED AAYUSH HEELS. PATIENT IN NO DISTRESS. WAS AT BEDSIDE THIS MORNING.
[2018-01-15] MEDS: IV NS 0.9% 1,000 ML IV PRN (12:37)
[2018-01-15] MEDS: CEFTRIAXONE 1 G in IV NS 0.9% 50 ML IV SCH (17:30)
--- NOTE | 2018-01-15 19:03 | NUR ---
RN NOTES PATIENT A/OX1, CONFUSED, DISORGANIZED THOUGHTS, PATIENT RESTLESS, CAREGIVER AT BEDSIDE, NO DISTRESS NOTED, NO SIGNIFICANT CHANGE, CONTINUE ON IV ANTIBIOTIC. TURNED AND REPOSITIONED EVERY 2 HOURS, Z-GUARD APPLIED. ALL NEEDS ATTENDED AND MET, CALL LIGHT WITHIN REACH, WILL ENDORSE TO PERSONAL COACH FOR DORIAN.
--- NOTE | 2018-01-15 19:31 | NUR ---
RN MS OPENING NOTES PATIENT IN BED AWAKE. ALERT AND ORIENTED X1. VERBALLY RESPONSIVE BUT WITH DISORGANIZED SPEECH. BREATHING EVEN AND UNLABORED. NO SOB NOTED. NO SIGNS OF PAIN OR DISCOMFORT. NO FACIAL GRIMACING. SKIN DRY AND WARM TO TOUCH. IV ON RIGHT FA #20 INTACT AND PATENT, CURRENTLY RUNNING IV NS @75ML/HR. SITTER AT BEDSIDE. ALL OTHER NEEDS ATTENDED TO. CALL LIGHT WITHIN REACH. BED ON LOWEST LOCKED POSITION. WILL CONTINUE TO MONITOR.
[2018-01-15] MEDS: DONEPEZIL 5 MG TABLET PO SCH (21:00)
[2018-01-15] MEDS: ATORVASTATIN 40 MG TABLET PO SCH (21:00)
[2018-01-15] MEDS: INSULIN GLARGINE, 100 UNIT/ML CARTRIDGE SQ SCH (21:04)
[2018-01-15] MEDS ORDERED: IV 1/2NS 1000 ML 1,000 ML IV PRN (21:30)
[2018-01-16 06:23] LABS: BASOPHILS % (AUTO) 0.7 % (0.0-2.0); EOSINOPHILS % (AUTO) 3.2 % (0.0-6.0); HEMATOCRIT 31 % (33-45); HEMOGLOBIN 10.5 g/dL (11.5-14.8); LYMPHOCYTES % (AUTO) 44.6 % (20.0-44.0); MEAN CORPUSCULAR HEMOGLOBIN 31 PG (26.0-33.0); MEAN CORPUSCULAR HGB CONC 33 g/dl (31.0-36.0); MEAN CORPUSCULAR VOLUME 94 fL (82-100); MONOCYTES # (AUTO) 0.5 /CMM (0.1-1.30); NEUTROPHILS # (AUTO) 2.9 /CMM (1.8-8.9); NEUTROPHILS % (AUTO) 43.5 % (43.0-81.0); PLATELET COUNT (AUTO) 204 /CMM (150-450); RDW COEFFICIENT OF VARIATION 13.7 (11.5-15.0); RED BLOOD CELL COUNT(AUTO) 3.36 MIL/uL (4.0-5.2); WHITE BLOOD COUNT (AUTO) 6.7 K/uL (4.3-11.0)
[2018-01-16] MEDS: BLOOD SUGAR DIAGNOSTIC 1 EACH STRIP IN SCH ×4 (06:35→21:43)
[2018-01-16] MEDS: INSULIN REGULAR, HUMAN 100 UNIT/ML 3 ML VIAL SQ PRN ×4 (06:37→21:43)
[2018-01-16 06:40] LABS: CALCIUM, SERUM 7.7 mg/dL (8.5-10.1); CREATININE 0.5 mg/dL (0.6-1.3); POTASSIUM 3.3 mmol/L (3.5-5.1)
--- NOTE | 2018-01-16 06:51 | NUR ---
RN MS CLOSING NOTES PATIENT IN BED, AWAKE. ALERT AND ORIENTED X1. VERBALLY RESPONSIVE BUT WITH DISORGANIZED SPEECH. BREATHING EVEN AND UNLABORED. NO SOB NOTED. NO SIGNS OF PAIN OR DISCOMFORT. NO FACIAL GRIMACING. SKIN DRY AND WARM TO TOUCH. IV ON RIGHT FA @20 INTACT AND PATENT, CURRENTLY RUNNING IV 1/2 NS @60ML/HR. KEPT CLEAN, DRY AND COMFORTABLE. SITTER AT BEDSIDE. ALL OTHER NEEDS ATTENDED TO. CALL LIGHT WITHIN REACH. BED ON LOWEST LOCKED POSITION. WILL ENDORSE TO ONCOMING NURSE FOR CONTINUITY FOR CARE.
--- NOTE | 2018-01-16 08:00 | NUR ---
RN OPENING NOTES 1:1 SITTER AT BEDSIDE. PT. IS A&OX1, CONFUSED. PT. WAS REORIENTED. BREATHING UNLABORED, AND EVENLY ON ROOM AIR. NO S/S OF ACUTE DISTRESS. IV FLUIDS RUNNING AT 60 ML/HR. BED IS IN LOWEST, AND LOCKED POSITION. 2 SIDE RAILS UP. CALL LIGHT WITHIN REACH. ALL NEEDS MET AT THIS TIME.
[2018-01-16 08:38] VITALS: BP 116/84
[2018-01-16] MEDS: risperiDONE-M 0.5 MG TAB.RAPDIS PO SCH ×2 (09:17→18:24)
[2018-01-16] MEDS: BENZTROPINE MESYLATE (1 MG) 1 MG TABLET PO SCH ×2 (09:17→18:24)
[2018-01-16] MEDS ORDERED: Z GUARD REMEDY 2 OZ OINT TP PRN (10:30)
--- NOTE | 2018-01-16 10:34 | NUR ---
WOUND CARE CONSULT PATIENT SEEN AND SKIN INTEGRITY ASSESSMENT DONE. PLEASE SEE MOLECULAR BIOLOGIST ASSESSMENT IN PCS. TREATMENT RECOMMENDATION DISCUSSED WITH VARNISH MELTER HELPER AND IN AGREEMENT. PATIENT WITH SLOANE OF 13. ALL PRESSURE ULCER PREVENTION MEASURES NOTED TO BE IN PLACE PER PLAN OF CARE. WILL SEE PATIENT PRN. Addendum: 01/16/18 at 1037 by DANDY MONZON RN Amended: Links added.
[2018-01-16] MEDS ORDERED: POTASSIUM CHLORIDE 20 MEQ POWDER PACKET PO ONE (11:00)
[2018-01-16] MEDS: Z GUARD REMEDY 2 OZ OINT TP SCH (11:18)
--- NOTE | 2018-01-16 11:31 | NUR ---
WOUND CARE PERFORMED. CLEANED SACRUM, AND INTRAGLUTEAL CLEFT WITH NORMAL SALINE, PAT DRY, APPLIED Z GUARD, AND COVERED WITH MEPILEX. PT. TOLERATED PROCEDURE WELL.
[2018-01-16 16:00] VITALS: BP 131/60
[2018-01-16] MEDS: CEFTRIAXONE 1 G in IV NS 0.9% 50 ML IV SCH (18:21)
[2018-01-16] MEDS: busPIRone 5 MG TABLET PO SCH (18:24)
--- NOTE | 2018-01-16 19:00 | NUR ---
RN OPENING NOTES PT.'S FAMILY IS AT BEDSIDE. PT. IS A&OX1, CONFUSED. BREATHING UNLABORED, AND EVENLY ON ROOM AIR. NO S/S OF ACUTE DISTRESS. IV ANTIBIOTICS RUNNING AT BEDSIDE. BED IS IN LOWEST, AND LOCKED POSITION. 2 SIDE RAILS UP. CALL LIGHT WITHIN REACH. ALL NEEDS MET AT THIS TIME. WILL ENDORSE REPORT TO NURSE.
--- NOTE | 2018-01-16 19:30 | NUR ---
RN MS OPENING NOTES PATIENT IN BED AWAKE. ALERT AND ORIENTED X1. VERBALLY RESPONSIVE BUT WITH DISORGANIZED SPEECH. BREATHING EVEN AND UNLABORED. NO SOB NOTED. NO SIGNS OF PAIN OR DISCOMFORT. NO FACIAL GRIMACING. SKIN DRY AND WARM TO TOUCH. IV ON RIGHT FA #20 INTACT AND PATENT. SITTER AT BEDSIDE. SON AT BEDSIDE. ALL OTHER NEEDS ATTENDED TO. CALL LIGHT WITHIN REACH. BED ON LOWEST LOCKED POSITION. WILL CONTINUE TO MONITOR.
[2018-01-16 20:00] VITALS: BP 106/86
[2018-01-16] MEDS: DONEPEZIL 5 MG TABLET PO SCH (21:38)
[2018-01-16] MEDS: ATORVASTATIN 40 MG TABLET PO SCH (21:38)
[2018-01-16] MEDS: INSULIN GLARGINE, 100 UNIT/ML CARTRIDGE SQ SCH (21:40)
--- NOTE | 2018-01-17 06:35 | NUR ---
RN MS NOTES BLOOD SUGAR: 75 - NO COVERAGE NEEDED. PATIENT GIVEN ORANGE JUICE.
--- NOTE | 2018-01-17 06:35 | NUR ---
RN MS CLOSING NOTES PATIENT IN BED, AWAKE. ALERT AND ORIENTED X1. VERBALLY RESPONSIVE BUT WITH DISORGANIZED SPEECH. BREATHING EVEN AND UNLABORED. NO SOB NOTED. NO SIGNS OF PAIN OR DISCOMFORT. NO FACIAL GRIMACING. SKIN DRY AND WARM TO TOUCH. IV ON RIGHT FA @20 INTACT AND PATENT. KEPT CLEAN, DRY AND COMFORTABLE. SITTER AT BEDSIDE. ALL OTHER NEEDS ATTENDED TO. CALL LIGHT WITHIN REACH. BED ON LOWEST LOCKED POSITION. WILL ENDORSE TO ONCOMING NURSE FOR CONTINUITY FOR CARE.
[2018-01-17] MEDS: BLOOD SUGAR DIAGNOSTIC 1 EACH STRIP IN SCH ×4 (06:37→21:00)
[2018-01-17 07:03] LABS: CALCIUM, SERUM 8.1 mg/dL (8.5-10.1); CREATININE 0.4 mg/dL (0.6-1.3); POTASSIUM 3.2 mmol/L (3.5-5.1)
--- NOTE | 2018-01-17 08:00 | NUR ---
MS RN NOTES PATIENT IN BED RESTING NO SOB OR ACUTE DISTRESS NOTED. PATIENT ALERT, ORIENTED X1. PERIPHERAL IV INTACT PATENT. BED IN LOW LOCKED POSITION. SITTER AT BEDSIDE FOR SAFETY. WILL CONTINUE TO MONITOR.
[2018-01-17] MEDS: risperiDONE-M 0.5 MG TAB.RAPDIS PO SCH ×2 (08:40→20:38)
[2018-01-17] MEDS: BENZTROPINE MESYLATE (1 MG) 1 MG TABLET PO SCH ×3 (08:40→20:38)
[2018-01-17] MEDS: busPIRone 5 MG TABLET PO SCH ×3 (08:40→20:38)
[2018-01-17] MEDS: Z GUARD REMEDY 2 OZ OINT TP SCH (08:41)
[2018-01-17] MEDS: POTASSIUM CHLORIDE 20 MEQ POWDER PACKET PO SCH ×2 (10:31→11:47)
[2018-01-17] MEDS: INSULIN REGULAR, HUMAN 100 UNIT/ML 3 ML VIAL SQ PRN ×2 (12:02→21:05)
[2018-01-17] MEDS ORDERED: CEPH-570 PO (13:10)
[2018-01-17] MEDS ORDERED: risperiDONE-M PO (13:10)
[2018-01-17] MEDS ORDERED: Insulin Glargine,Hum SQ (13:10)
[2018-01-17] MEDS ORDERED: INSU100V28 SQ (13:10)
[2018-01-17] MEDS ORDERED: BENZ1TAB7 PO (13:10)
[2018-01-17] MEDS ORDERED: BUSP5TAB3 PO (13:10)
--- NOTE | 2018-01-17 15:40 | NUR ---
MS RN NOTES PATIENT SEEN AND EVALUATED BY DR. CABRALES INCREASED RISPERIDAL TO 0.5 MG TWICE DAILY ORDERS NOTED AND CARRIED OUT.
[2018-01-17] MEDS ORDERED: risperiDONE-M 0.5 MG TAB.RAPDIS PO SCH (17:00)
--- NOTE | 2018-01-17 18:18 | NUR ---
MS RN NOTES PATIENT IN BED RESTING NO SOB OR ACUTE DISTRESS NOTED. ALL DUE MEDICATIONS ADMINISTERED. ALL NEEDS MET. WILL ENDORSE TO PM SHIFT DORIAN.
--- NOTE | 2018-01-17 19:00 | NUR ---
MS RN OPENING NOTE RECEIVE PATIENT AWAKE IN BED, A/O X1,NO SOB OR DISTRESS NOTED, CALL LIGHT WITHIN REACH. SAFETY MEASURES IMPLEMENTED. WILL CONTINUE TO MONITOR THROUGHOUT SHIFT.
[2018-01-17 20:00] VITALS: BP 111/69
[2018-01-17] MEDS: CEPHALEXIN MONOHYDRATE 500 MG CAPSULE PO SCH (20:39)
[2018-01-17] MEDS: INSULIN GLARGINE, 100 UNIT/ML CARTRIDGE SQ SCH (20:59)
[2018-01-17] MEDS: DONEPEZIL 5 MG TABLET PO SCH (21:00)
[2018-01-17] MEDS: ATORVASTATIN 40 MG TABLET PO SCH (21:01)
[2018-01-18] MEDS: BLOOD SUGAR DIAGNOSTIC 1 EACH STRIP IN SCH ×4 (05:31→21:11)
[2018-01-18] MEDS: INSULIN REGULAR, HUMAN 100 UNIT/ML 3 ML VIAL SQ PRN ×4 (05:34→21:18)
--- NOTE | 2018-01-18 06:17 | NUR ---
MS RN CLOSING NOTES PT COMFORTABLY ASLEEP AND EASILY AWAKEN, STABLE CONDITION. RESPIRATION EVEN AND UNLABORED. KEPT CLEAN AND DRY AND COMFORTABLE, ALL NURSING CARE RENDERED. NEEDS ATTENDED AND ANTICIPATED, NOT IN DISTRESS, NO FACIAL GRIMACING NOTED. ASSISTED REPOSITION EVERY 2 HOURS. ON LOW BED AT ALL TIMES TO ENSURE SAFETY. SAFE HAZARD FREE ENVIRONMENT PROVIDED. CALL LIGHT WITHIN EASY TO REACH. WILL ENDORSE NEXT SHIFT CONTINUITY OF CARE.
[2018-01-18 06:20] LABS: CREATININE 0.5 mg/dL (0.6-1.3); POTASSIUM 3.7 mmol/L (3.5-5.1)
[2018-01-18 08:00] VITALS: BP 108/98
--- NOTE | 2018-01-18 08:00 | NUR ---
MS RN NOTES PATIENT IN BED RESTING NO SOB OR ACUTE DISTRESS NOTED. PATIENT ALERT, ORIENTED X1. WITH SITTER AT BEDSIDE FOR SAFETY. PERIPHERAL IV INTACT PATENT. BED IN LOW LOCKED POSITION. WILL CONTINUE TO MONITOR.
[2018-01-18] MEDS: CEPHALEXIN MONOHYDRATE 500 MG CAPSULE PO SCH ×2 (08:09→20:32)
[2018-01-18] MEDS: risperiDONE-M 0.5 MG TAB.RAPDIS PO SCH ×3 (08:09→20:32)
[2018-01-18] MEDS: busPIRone 5 MG TABLET PO SCH ×3 (08:09→20:32)
[2018-01-18] MEDS: BENZTROPINE MESYLATE (1 MG) 1 MG TABLET PO SCH ×3 (08:10→20:33)
[2018-01-18] MEDS: Z GUARD REMEDY 2 OZ OINT TP SCH (08:10)
--- NOTE | 2018-01-18 14:09 | NUR ---
pt's is requesting PT service today, spoke with PT and PT director [facility] islip to provide tx, according to PT patient scheduled for 5x/wk only and next tx will be on Saturday. will inform pt's and will try to encourage pt to participate in adl for mobility.
[2018-01-18 16:00] VITALS: BP 123/75
--- NOTE | 2018-01-18 17:00 | NUR ---
MS RN NOTES PATIENT AMBULATED IN HALLWAY WITH 2 PERSON ASSIST TOLERATED WELL. WITH UNSTEADY GAIT.
--- NOTE | 2018-01-18 19:00 | NUR ---
MS RN NOTES PATIENT IN BED RESTING NO SOB OR ACUTE DISTRESS NOTED. ALL DUE MEDICATIONS ADMINISTERED. ALL NEEDS MET. REPORT GIVEN FOR DORIAN TO PM SHIFT.
--- NOTE | 2018-01-18 19:07 | NUR ---
MS RN OPENING NOTE RECEIVE PATIENT AWAKE IN BED, A/O X1, AT BEDSIDE, NO SOB OR DISTRESS NOTED, CALL LIGHT WITHIN REACH. SAFETY MEASURES IMPLEMENTED. WILL CONTINUE TO MONITOR THROUGHOUT SHIFT.
[2018-01-18 20:00] VITALS: BP 105/73
[2018-01-18] MEDS: DONEPEZIL 5 MG TABLET PO SCH (21:11)
[2018-01-18] MEDS: ATORVASTATIN 40 MG TABLET PO SCH (21:12)
[2018-01-18] MEDS: INSULIN GLARGINE, 100 UNIT/ML CARTRIDGE SQ SCH (21:15)
[2018-01-19] MEDS: BLOOD SUGAR DIAGNOSTIC 1 EACH STRIP IN SCH ×4 (05:31→22:01)
[2018-01-19] MEDS: INSULIN REGULAR, HUMAN 100 UNIT/ML 3 ML VIAL SQ PRN ×4 (05:34→23:28)
--- NOTE | 2018-01-19 06:29 | NUR ---
MS RN CLOSING NOTES PT COMFORTABLY ASLEEP AND EASILY AWAKEN, STABLE, TOLERATING ROOM AIR 98%. NOT IN DISTRESS. RESPIRATION EVEN AND UNLABORED. KEPT CLEAN AND DRY AND COMFORTABLE, ALL NURSING CARE RENDERED. NEEDS ATTENDED AND ANTICIPATED, NO FACIAL GRIMACING NOTED. ASSISTED REPOSITION EVERY 2 HOURS. ON LOW BED AT ALL TIMES TO ENSURE SAFETY. SAFE HAZARD FREE ENVIRONMENT PROVIDED. CALL LIGHT WITHIN EASY TO REACH. WILL ENDORSE NEXT SHIFT CONTINUITY OF CARE.
--- NOTE | 2018-01-19 07:15 | NUR ---
RN NOTES PT IS LAYING DOWN IN BED, AWAKE AND RESTING COMFORTABLY WITH SITTER AT BEDSIDE. PT ON RA, RESPIRATIONS ARE EVEN AND UNLABORED. IV ON RFA INTACT AND SL. NO SIGNS OF DISTRESS NOTED.SAFETY MEASURERS ARE IN PLACE, CALL LIGHT IS IN REACH. WILL CONTINUE TO MONITOR.
[2018-01-19 08:00] VITALS: BP 150/91
[2018-01-19] MEDS: risperiDONE-M 0.5 MG TAB.RAPDIS PO SCH ×3 (08:15→20:29)
[2018-01-19] MEDS: BENZTROPINE MESYLATE (1 MG) 1 MG TABLET PO SCH ×3 (08:15→20:29)
[2018-01-19] MEDS: Z GUARD REMEDY 2 OZ OINT TP SCH (08:15)
[2018-01-19] MEDS: CEPHALEXIN MONOHYDRATE 500 MG CAPSULE PO SCH ×2 (08:15→20:29)
[2018-01-19] MEDS: busPIRone 5 MG TABLET PO SCH ×3 (08:15→20:28)
--- NOTE | 2018-01-19 12:20 | NUR ---
LEFT MESSAGE FOR PT'S ABOUT ROOM CHANGE.
--- NOTE | 2018-01-19 12:30 | NUR ---
RN NOTES REPORT WAS GIVEN TO SHREE MAYFIELD FOR CONTINUITY OF CARE. PT WAS TRANSFERRED TO [facility] TO IN STABLE CONDITION BY WHEELCHAIR. ALL BELONGINGS WERE BROUGHT DOWN WITH PT.
--- NOTE | 2018-01-19 13:03 | NUR ---
MS RN NOTE RECEIVED REPORT FROM CHAPARRO GA. PATIENT WAS TRANSFERRED TO [facility]LO[facility] ON A WHEELCHAIR, ACCOMPANIED BY ASSIGNED RN AND BRUSH FINISHER. PATIENT IS STABLE. ALERT ORIENTED X1, CONFUSED WITH DISORGANIZED THOUGHTS. VITAL SIGNS STABLE. IN NO APPARENT DISTRESS OR DISCOMFORT AT THIS TIME. ON ROOM AIR, TOLERATING WELL. IV ACCESS ON RIGHT FA 20G, COVERED WITH ARM SLEEVE TO PREVENT PATIENT PULLING IT OUT, PATENT AND INTACT. WAS MADE COMFORTABLE IN BED. KEPT CLEAN. SAFETY MEASURES IN PLACE, BED IN LOW LOCKED POSITION, SIDE RAILS UP X3, CALL LIGHT WITHIN EASY REACH, SITTER AT BEDSIDE. WILL TAKE OVER PATIENT'S CARE AND CARRY OUT ALL FURTHER ORDERS.
--- NOTE | 2018-01-19 17:52 | NUR ---
RECEIVED CALL FORM PT'S , NEW ROOM NUMBER PROVIDED AND CALL TRANSFERRED TO MS2 PER HIS REQUEST.
--- NOTE | 2018-01-19 19:35 | NUR ---
MS RN OPENING NOTES RECEIVED PT RESTING IN BED, SON AT BEDSIDE. PT. IS A & O X 1, CONFUSED. BREATHING UNLABORED, AND EVENLY ON ROOM AIR. NO S/S OF ACUTE DISTRESS. IV ACCESS TO RFA, INTACT PATENT, SL. ON 1:1 SITTER FOR SAFETY. BED IS IN LOWEST, AND LOCKED POSITION. 2 SIDE RAILS UP. CALL LIGHT WITHIN REACH. ALL NEEDS MET AT THIS TIME. WILL MONITOR CLOSELY.
--- NOTE | 2018-01-19 19:57 | NUR ---
MS RN CLOSING NOTE PATIENT IN BED, ALERT, DISORIENTED WITH DISORGANIZED THOUGHT. ON ROOM AIR. TOLERATING WELL. IN NO APPARENT DISTRESS OR DISCOMFORT AT THIS TIME. RESPIRATIONS EVEN AND UNLABORED. PATIENT IS WITH A SITTER AT BEDSIDE DUE TO HIGH RISK FOR INJURY. DENIES PAIN,. IV ACCESS ON THE RIGHT HAND, COVERED WITH SLEEVE TO PREVENT FROM PATIENT REMOVING IT. PATIENT IS INCONTINENT WITH DIAPER. KEPT CLEAN AND COMFORTABLE, ALL NEEDS ATTENDED, SAFETY MEASURES IN PLACE, BED IN LOW LOCKED POSITION, SIDE RAILS UPX3, CALL LIGHT WITHIN EASY REACH. WILL ENDORSE TO PM NURSE FOR DORIAN.
[2018-01-19 20:00] VITALS: BP 122/55
--- NOTE | 2018-01-19 20:30 | NUR ---
MS RN NOTE SON @ BED SIDE & WANTED TO AMBULATE THE PT, USED WALKER WITH 2 PERSON ASSIST, PT NOTED TO BE UNSTEADY. ASSISTED BACK TO CHAIR THEN TO BED. BED BATH WAS GIVEN TO THE PT. MONITORING CLOSELY.
--- NOTE | 2018-01-19 21:00 | NUR ---
MS RN NOTE AM SHIFT REPORTED THAT OF THE PATIENT REQUESTED TO GIVE SHOWER TO THE PATIENT BUT PT NOTED TO BE RESISTIVE WITH CARE, UNSTEADY & UNABLE TO FOLLOW DIRECTIONS @ THIS TIMES. IT WAS UNSAFE TO GIVE SHOWER @ THIS TIME, INFORMED SON @ BED SIDE. BED BATH WAS GIVEN. WILL INFORM AM NURSE TO F/U IF PT IS IN STABLE CONDITION IN AM & IF IT IS SAFE TO GIVE SHOWER TO THE PT.
[2018-01-19] MEDS: ATORVASTATIN 40 MG TABLET PO SCH (21:59)
[2018-01-19] MEDS: DONEPEZIL 5 MG TABLET PO SCH (21:59)
[2018-01-19] MEDS: INSULIN GLARGINE, 100 UNIT/ML CARTRIDGE SQ SCH (22:03)
--- NOTE | 2018-01-20 07:07 | NUR ---
MS RN CLOSING NOTES PT SLEPT INTERMITTENTLY @ NIGHT. A & O X 1, CONFUSED, RESISTANT TO CARE @ TIMES. NEEDS FREQUENT REDIRECTIONS. TOLERATING ROOM AIR 98%. NOT IN DISTRESS. RESPIRATION EVEN AND UNLABORED. KEPT CLEAN AND DRY AND COMFORTABLE, ALL NURSING CARE RENDERED. NEEDS ATTENDED AND ANTICIPATED, NO FACIAL GRIMACING NOTED. ASSISTED REPOSITION EVERY 2 HOURS. ON LOW BED AT ALL TIMES TO ENSURE SAFETY. ON 1:1 SITTER FOR SAFETY. SAFE HAZARD FREE ENVIRONMENT PROVIDED. CALL LIGHT WITHIN EASY TO REACH. WILL ENDORSE NEXT SHIFT CONTINUITY OF CARE.
--- NOTE | 2018-01-20 08:00 | NUR ---
RN NOTES RECEIVED PATIENT IN THE BED A/O X1. CONFUSED, DELUSIONAL, HARD TO FOLLOW DIRECTION. NEEDS ATTENDED AND ANTICIPATED, 1:1 SITTER NEXT TO THE BED FOR SAFETY. BS-166 MG/DL COVERAGE GIVEN, ALSO ADMINISTERED SCHEDULED MEDICATION, V/S STABLE. ASSIST TURN AND REPOSTION Q 2 HR. PATIENT INCONTINENT, FALL PRECAUTION.` CALL LIGHT WITHIN TO REACH. ASSIST EATING. CONTINUED MONITORING.
[2018-01-20] MEDS: BLOOD SUGAR DIAGNOSTIC 1 EACH STRIP IN SCH ×4 (08:03→22:22)
[2018-01-20] MEDS: CEPHALEXIN MONOHYDRATE 500 MG CAPSULE PO SCH ×2 (08:23→21:08)
[2018-01-20] MEDS: busPIRone 5 MG TABLET PO SCH ×3 (08:24→19:51)
[2018-01-20] MEDS: BENZTROPINE MESYLATE (1 MG) 1 MG TABLET PO SCH ×3 (08:24→19:52)
[2018-01-20] MEDS: risperiDONE-M 0.5 MG TAB.RAPDIS PO SCH ×3 (08:24→19:52)
[2018-01-20] MEDS: Z GUARD REMEDY 2 OZ OINT TP SCH (08:25)
[2018-01-20] MEDS: INSULIN REGULAR, HUMAN 100 UNIT/ML 3 ML VIAL SQ PRN ×4 (08:30→23:55)
[2018-01-20 09:36] VITALS: BP 121/84
--- NOTE | 2018-01-20 12:10 | NUR ---
RN NOTES BS 200 MG/DL, MEDICATION ADMINISTERED, SHOWER GIVEN PATIENT BY TWO EXHIBITION DESIGNER'S. PATIENT SITTING IN WHEELCHAIR. CONTINUED MONITORING. NEXT TO THE BED, CONTINUED MONITORING.
[2018-01-20 16:38] VITALS: BP 127/82
--- NOTE | 2018-01-20 18:15 | NUR ---
RN NOTES PATIENT IN THE BED NO ACUTE DISTRESS,. BS-293 MG/DL, COVERAGE GIVEN. NEEDS ATTENDED AND ANTICIPATED, NO ACUTE RESPIRATORY DISTRESS. ENDORSED ONCOMING NURSER FOR PLAN OF CARE.
--- NOTE | 2018-01-20 19:24 | NUR ---
MS RN OPENING NOTES RECEIVED PT RESTING IN BED WATCHING TV, SITTER @ BED SIDE @ THIS TIME. PT IS A & O X 1, CONFUSED/FORGETFUL. BREATHING UNLABORED, AND EVENLY ON ROOM AIR. NO S/S OF ACUTE DISTRESS. PER AM RN REPORT, PT HAD SHOWER IN AM SHIFT. IV ACCESS TO RFA, INTACT PATENT, SL. BED IS IN LOWEST, AND LOCKED POSITION. 2 SIDE RAILS UP. CALL LIGHT WITHIN REACH. ALL NEEDS MET AT THIS TIME. WILL MONITOR CLOSELY.
[2018-01-20 19:59] VITALS: BP 135/74
--- NOTE | 2018-01-20 21:45 | NUR ---
MS RN NOTE ASSISTED THE BOAT MECHANIC TO CHANGE THE PT, ATTEMPTED TO STAND HER UP OUT OF BED WITH 2 PERSON ASSIST, BUT PT GETS VERY RESISTIVE WITH CARE & UNABLE TO FOLLOW THE DIRECTIONS TO STAND STRAIGHT. PT LEANS BACKWARD WHILE STANDING & VERY STIFF TO HANDLE WHILE STANDING DESPITE OF GIVING HER SIMPLE DIRECTIONS TO STAND UP STRAIGHT WITH 2 PERSON ASSIST. ASSISTED HER BACK TO BED, CHANGED IN BED FOR SAFETY CONCERNS. WILL MONITOR CLOSELY.
[2018-01-20] MEDS: DONEPEZIL 5 MG TABLET PO SCH (22:17)
[2018-01-20] MEDS: ATORVASTATIN 40 MG TABLET PO SCH (22:17)
[2018-01-20] MEDS: INSULIN GLARGINE, 100 UNIT/ML CARTRIDGE SQ SCH (22:21)
[2018-01-21] MEDS: BLOOD SUGAR DIAGNOSTIC 1 EACH STRIP IN SCH ×4 (06:39→21:41)
--- NOTE | 2018-01-21 06:56 | NUR ---
MS RN CLOSING NOTES PT SLEPT WELL @ NIGHT. A & O X 1, CONFUSED/FORGETFUL. TOLERATING ROOM AIR 96%. NOT IN DISTRESS. RESPIRATION EVEN AND UNLABORED. KEPT CLEAN AND DRY AND COMFORTABLE, ALL NURSING CARE RENDERED. NEEDS ATTENDED AND ANTICIPATED, NO FACIAL GRIMACING NOTED. ASSISTED REPOSITION EVERY 2 HOURS. ON LOW BED AT ALL TIMES TO ENSURE SAFETY. ON 1:1 SITTER FOR SAFETY. SAFE HAZARD FREE ENVIRONMENT PROVIDED. CALL LIGHT WITHIN EASY TO REACH. WILL ENDORSE NEXT SHIFT CONTINUITY OF CARE.
--- NOTE | 2018-01-21 07:30 | NUR ---
RN INITIAL NOTES: PATIENT RESTING IN BED, AROUSABLE TO NAME AND TOUCH. AOX1. NONLABORED BREATHING NOTED ON ROOM AIR. IV SITE ON RFA PATENT AND INTACT. SITTER AT BEDSIDE. NO SHARP OBJECTS AT BEDSIDE. BED IN LOWEST LOCKED POSITION. CALL LIGHT WITHIN REACH. WILL CONTINUE TO MONITOR
[2018-01-21 08:00] VITALS: BP 106/66
[2018-01-21] MEDS: busPIRone 5 MG TABLET PO SCH ×3 (08:17→20:40)
[2018-01-21] MEDS: risperiDONE-M 0.5 MG TAB.RAPDIS PO SCH ×3 (08:18→20:41)
[2018-01-21] MEDS: BENZTROPINE MESYLATE (1 MG) 1 MG TABLET PO SCH ×3 (08:18→20:41)
[2018-01-21] MEDS: CEPHALEXIN MONOHYDRATE 500 MG CAPSULE PO SCH ×2 (09:55→20:41)
[2018-01-21] MEDS: INSULIN REGULAR, HUMAN 100 UNIT/ML 3 ML VIAL SQ PRN ×3 (12:18→21:43)
[2018-01-21] MEDS: Z GUARD REMEDY 2 OZ OINT TP SCH (12:21)
[2018-01-21 16:00] VITALS: BP 139/70
--- NOTE | 2018-01-21 18:00 | NUR ---
WOUND CARE DONE DURING SHIFT. PATIENT KEPT CLEAN AND DRY
--- NOTE | 2018-01-21 19:35 | NUR ---
RN CLOSING NOTES: PATIENT RESTING IN BED, AROUSABLE TO NAME AND TOUCH. AOX1. NONLABORED BREATHING NOTED ON ROOM AIR. IV SITE ON RFA PATENT AND INTACT. SITTER AT BEDSIDE. NO SHARP OBJECTS AT BEDSIDE. BED IN LOWEST LOCKED POSITION. CALL LIGHT WITHIN REACH. PATIENT DENYING HI AND SI. DURING SHIFT, PATIENT REFUSED TO SHOWER. BENEFITS AND RISKS EXPLAINED TO PATIENT MULTIPLE TIMES. ENDORSED TO ELEMENTARY SCHOOL PROFESSIONAL
[2018-01-21 20:00] VITALS: BP 109/69
[2018-01-21] MEDS: ATORVASTATIN 40 MG TABLET PO SCH (21:29)
[2018-01-21] MEDS: DONEPEZIL 5 MG TABLET PO SCH (21:29)
[2018-01-21] MEDS: INSULIN GLARGINE, 100 UNIT/ML CARTRIDGE SQ SCH (21:42)
--- NOTE | 2018-01-21 22:20 | NUR ---
KRISTY BRASWELL SPOKE TO DR. CORBIN RELAYED PT NEEDS TO BE DIALYSIS BECUASE PT HAS SX TOMORROW PER DR. RENEE DIALYSIS NURSE, WILL CALL DIALYSIS NURSE Addendum: 01/22/18 at 0141 by DC MARKS RN MISTAKEN ENTRY THIS IS ENTRY IS FOR DIFFERENT PATIENT PLS DISREGARD THIS ENTRY
--- NOTE | 2018-01-21 22:30 | NUR ---
CALLED [facility] DIALYSIS NURSE PER [facility]OLA HE WILL COME TONIGHT Addendum: 01/22/18 at 0142 by DC MARKS RN MISTAKEN ENTRY THIS IS ENTRY IS FOR DIFFERENT PATIENT PLS DISREGARD THIS ENTRY
--- NOTE | 2018-01-21 23:35 | NUR ---
[facility] DIALYSIS NURSE CAME STARTED DIALYSIS PER [facility] HE CALLED DR. CORBIN AND HE GOT ORDERS TO DIALYSATE PT Addendum: 01/22/18 at 0142 by DC MARKS RN MISTAKEN ENTRY THIS IS ENTRY IS FOR DIFFERENT PATIENT PLS DISREGARD THIS ENTRY
--- NOTE | 2018-01-22 01:41 | NUR ---
MISTAKEN ENTRY THIS IS ENTRY IS FOR DIFFERENT PATIENT PLS DISREGARD THIS ENTRY
[2018-01-22] MEDS: BLOOD SUGAR DIAGNOSTIC 1 EACH STRIP IN SCH ×2 (05:47→12:07)
[2018-01-22] MEDS: INSULIN REGULAR, HUMAN 100 UNIT/ML 3 ML VIAL SQ PRN ×3 (06:11→13:21)
--- NOTE | 2018-01-22 06:21 | NUR ---
MS RN CLOSING NOTES PT COMFORTABLY ASLEEP AND EASILY AWAKEN, TOLERATING ROOM AIR 100%. 1:1 SITTER, NOT IN DISTRESS. RESPIRATION EVEN AND UNLABORED. KEPT CLEAN AND DRY AND COMFORTABLE, ALL NURSING CARE RENDERED. NEEDS ATTENDED AND ANTICIPATED, NO FACIAL GRIMACING NOTED. ASSISTED REPOSITION EVERY 2 HOURS. ON LOW BED AT ALL TIMES TO ENSURE SAFETY. SAFE HAZARD FREE ENVIRONMENT PROVIDED. CALL LIGHT WITHIN EASY TO REACH. WILL ENDORSE NEXT SHIFT CONTINUITY OF CARE.
[2018-01-22] MEDS: busPIRone 5 MG TABLET PO SCH ×3 (07:23→20:45)
[2018-01-22] MEDS: risperiDONE-M 0.5 MG TAB.RAPDIS PO SCH ×3 (07:24→20:45)
[2018-01-22] MEDS: BENZTROPINE MESYLATE (1 MG) 1 MG TABLET PO SCH ×3 (07:25→20:45)
--- NOTE | 2018-01-22 07:30 | NUR ---
RN INITIAL NOTES: PATIENT RESTING IN BED, AROUSABLE TO NAME AND TOUCH. AOX1. NONLABORED BREATHING NOTED ON ROOM AIR. IV SITE ON RFA PATENT AND INTACT. SITTER AT BEDSIDE. NO SHARP OBJECTS AT BEDSIDE. BED IN LOWEST LOCKED POSITION. CALL LIGHT WITHIN REACH. PATIENT DENYING HI AND SI. AM MEDICATIONS ADMINISTERED NOW PER DR BAKER ORDERS
[2018-01-22 08:00] VITALS: BP 134/94
[2018-01-22] MEDS: Z GUARD REMEDY 2 OZ OINT TP SCH (09:19)
[2018-01-22] MEDS: CEPHALEXIN MONOHYDRATE 500 MG CAPSULE PO SCH ×2 (09:19→20:45)
--- NOTE | 2018-01-22 12:56 | NUR ---
Dr Gracia notified of blood sugar levels and units administered. Received orders to increase lantus HS to [address] Gracia, change sliding scale to moderate Verbal readback done
[2018-01-22] MEDS ORDERED: DEXTROSE 50%-WATER 50 ML DISP.SYRIN IV PRN (13:00)
--- NOTE | 2018-01-22 13:00 | NUR ---
ADDITIONAL UNITS TO BE ADMINISTERED PER MODERATE SLIDING SCALE PER DR CADET VERBAL READBACK DONE
[2018-01-22] MEDS: BLOOD SUGAR DIAGNOSTIC 1 EACH STRIP VI SCH ×3 (14:10→21:26)
--- NOTE | 2018-01-22 14:10 | NUR ---
BLOOD SUGAR LEVELS TRENDING DOWN. PATIENT REFUSING LAB DRAW FOR ACCURATE BLOOD SUGAR. PATIENT EDUCATED ON DIET. ENCOURAGED TO STAY HYDRATED. DIET CHANGED TO LOW CARB PER DR MONTANEZ ORDERS. WILL CONTINUE TO MONITOR
--- NOTE | 2018-01-22 19:09 | NUR ---
RN CLOSING NOTES: PATIENT RESTING IN BED. AOX1. NONLABORED BREATHING NOTED ON ROOM AIR. IV SITE GAUGE 20 FLUSHED NOW, ON RFA PATENT AND INTACT. SITTER AT BEDSIDE. NO SHARP OBJECTS AT BEDSIDE. BED IN LOWEST LOCKED POSITION. CALL LIGHT WITHIN REACH. PATIENT DENYING HI AND SI. PATIENT BEING MONITORED FOR SIGNS AND SYMPTOMS OF HYPOGLYCEMIA. PATIENT CONSUMED 100% DINNER WILL ENDORSE TO NEXT RN
[2018-01-22 20:00] VITALS: BP 106/64
[2018-01-22] MEDS: ATORVASTATIN 40 MG TABLET PO SCH (21:25)
[2018-01-22] MEDS: DONEPEZIL 5 MG TABLET PO SCH (21:26)
[2018-01-22] MEDS: INSULIN GLARGINE, 100 UNIT/ML CARTRIDGE SQ SCH (21:27)
[2018-01-22] MEDS: *INSULIN REGULAR(HUMULIN R)HUM 100 UNIT/ML VIAL SQ PRN (22:13)
--- NOTE | 2018-01-23 06:30 | NUR ---
MS RN NOTES AWAKE & RESPONSIVE. NOT IN ANY DISTRESS. NO SOB NOTED. DENIES ANY PAIN OR DISCOMFORT AT THIS TIME. AM CARE DONE. MONITORED ACCORDINGLY. WITH SITTER AT BEDSIDE. CALL LIGHT WITHIN REACH. BED IN LOWEST POSITION. SR UP X 3 WITH BED ALARM ON FOR SAFETY. WILL ENDORSE TO NEXT SHIFT.
[2018-01-23] MEDS: BLOOD SUGAR DIAGNOSTIC 1 EACH STRIP VI SCH ×4 (06:52→22:06)
--- NOTE | 2018-01-23 07:30 | NUR ---
MS RN OPENING NOTES RECEIVED PATIENT IN STABLE CONDITION. IN NO APPARENT DISTRESS. BEDSIDE RAILS ARE UPX2. BED IS LOCKED AND LOWERED. CALL LIGHT IS WITHIN REACH. IV LINE IS INTACT AND PATENT. WILL CONTINUE TO MONITOR.
[2018-01-23] MEDS: CEPHALEXIN MONOHYDRATE 500 MG CAPSULE PO SCH ×2 (08:46→20:44)
[2018-01-23] MEDS: risperiDONE-M 0.5 MG TAB.RAPDIS PO SCH ×3 (08:46→20:44)
[2018-01-23] MEDS: busPIRone 5 MG TABLET PO SCH ×3 (08:46→20:44)
[2018-01-23] MEDS: BENZTROPINE MESYLATE (1 MG) 1 MG TABLET PO SCH ×3 (08:46→20:44)
[2018-01-23] MEDS: Z GUARD REMEDY 2 OZ OINT TP SCH (08:49)
--- NOTE | 2018-01-23 19:19 | NUR ---
MS RN CLOSING NOTES PATIENT IS RESTING IN BED IN NO APPARENT DISTRESS. BEDSIDE RAILS ARE UPX2. BED IS LOCKED AND LOWERED. CALL LIGHT IS WITHIN REACH. IV LINE IS INTACT AND PATENT. ALL NEEDS WERE MET. WILL ENDORSE CARE TO PUBLIC HEALTH TECHNOLOGIST NURSE FOR DORIAN.
--- NOTE | 2018-01-23 19:40 | NUR ---
RN INITIAL NOTES: RECEIVED REPORT FROM LYNN MAYFIELD. PT IN BED, AWAKE, VERY CONFUSED WITH DISORGANIZED THOUGHT, APPEARS CALM, NO FACIAL GRIMACE NOTED, SITTER AT BED SIDE. IV ACCESS COVERED WITH BROWN SLEEVE. PATENT AND FLUSHING WELL, ON HL. SAFETY PRECAUTIONS FOR FALL INITIATED, CALL LIGHT IN REACH, WILL CONTINUE MONITORING PT.
[2018-01-23 20:00] VITALS: BP 115/72
--- NOTE | 2018-01-23 20:53 | NUR ---
RN NOTES: DUE MEDS GIVEN, PT SWALLOW PILL WITHOUT ANY DISCOMFORT, SITTER AT BED SIDE WITNESS.
[2018-01-23] MEDS: ATORVASTATIN 40 MG TABLET PO SCH (22:05)
[2018-01-23] MEDS: DONEPEZIL 5 MG TABLET PO SCH (22:06)
[2018-01-23] MEDS: *INSULIN REGULAR(HUMULIN R)HUM 100 UNIT/ML VIAL SQ PRN (22:08)
[2018-01-23] MEDS: INSULIN GLARGINE, 100 UNIT/ML CARTRIDGE SQ SCH (22:08)
--- NOTE | 2018-01-23 22:09 | NUR ---
ACCU CHECK 326: BLOOD SUGAR CHECK AND RESULT 326, 8UNITS OF INSULIN GIVEN PER SLIDING SCALE, WILL MONITOR PT FOR ANY S/S OF HYPOGLYCEMIA
--- NOTE | 2018-01-24 02:46 | NUR ---
RN NOTES: SEEN PT SLEEPING AT THIS TIME, APPEARS CALM AND COMFORTABLE, NO FACIAL GRIMACE NOTED
[2018-01-24] MEDS: BLOOD SUGAR DIAGNOSTIC 1 EACH STRIP VI SCH ×3 (06:08→17:03)
--- NOTE | 2018-01-24 06:55 | NUR ---
RN CLOSING NOTES: PT REMAINS CONFUSED, SITTER AT BED SIDE, IV ACCESS REMAINS PATENT AND FLUSHING WELL, ON HL, COVERED WITH BROWN SLEEVE. VS REMAINS STABLE, NEEDS ATTENDED. SAFETY PRECAUTIONS FOR FALL REMAINS ENGAGED, CALL LIGHT IN REACH, WILL ENDORSE TO DAY RN FOR DORIAN.
--- NOTE | 2018-01-24 07:27 | NUR ---
MS OPENING NOTES RECEIVED PATIENT IN STABLE CONDITION. IN NO APPARENT DISTRESS. BEDSIDE RAILS ARE UPX2. BED IS LOCKED AND LOWERED. CALL LIGHT IS WITHIN REACH. IV LINE IS INTACT AND PATENT. WILL CONTINUE TO MONITOR.
[2018-01-24 08:00] VITALS: BP 130/74
[2018-01-24] MEDS: Z GUARD REMEDY 2 OZ OINT TP SCH (08:27)
[2018-01-24] MEDS: risperiDONE-M 0.5 MG TAB.RAPDIS PO SCH ×3 (08:27→21:04)
[2018-01-24] MEDS: BENZTROPINE MESYLATE (1 MG) 1 MG TABLET PO SCH ×3 (08:27→21:05)
[2018-01-24] MEDS: busPIRone 5 MG TABLET PO SCH ×3 (08:27→21:04)
[2018-01-24] MEDS: CEPHALEXIN MONOHYDRATE 500 MG CAPSULE PO SCH ×2 (08:28→21:04)
[2018-01-24] MEDS: INSULIN REGULAR, HUMAN 100 UNIT/ML 3 ML VIAL SQ PRN (13:07)
--- NOTE | 2018-01-24 13:08 | NUR ---
BUSPAR, COGENTIN AND RISPERDAL MEDICATIONS DID NOT SCAN AND SAVED. MEDICATION WAS ADMINISTERED AT 1300.
--- NOTE | 2018-01-24 15:46 | NUR ---
CARBON FURNACE OPERATOR'S GAVE PATIENT A SHOWER. PATTI VENCES AND PATTI MCARTHUR.
[2018-01-24 16:00] VITALS: BP 115/42
--- NOTE | 2018-01-24 18:35 | NUR ---
MS RN CLOSING NOTES PATIENT IS RESTING IN BED. IN NO APPARENT DISTRESS. BEDSIDE RAILS ARE UPX2. BED IS LOCKED AND LOWERED. CALL LIGHT IS WITHIN REACH. IV LINE IS INTACT AND PATENT. WILL ENDORSE CARE TO DIRECTOR TRIAL NURSE FOR DORIAN.
--- NOTE | 2018-01-24 19:18 | NUR ---
RN INITIAL NOTES: RECEIVED REPORT FROM JACQUELYN BAILEY FOR DC TO [facility], ALL DC PAPER WORKS COMPLETED, SIGNED BY PT'S , ALL BELONGINGS WERE CHECKED, ESTIMATED WO[facility] SUITING SHRINKER TIME IS 1945PM VIA [facility]. AWARE AND AT BED SIDE. DAY RN RECHECK BLOOD SUGAR PER REQUEST OF PT'S , PT ALREADY HAD DINNER, BLOOD SUGAR RESULT WAS 227. NEXT BLOOD SUGAR WILL BE AT 2200 WITH COVERAGE NEEDED. EDUCATE FAMILY THAT IT IS EXPECTED THAT PT'S BLOOD SUGAR IS HIGH AFTER HAVING MEALS. PHOTOS OF SKIN ISSUES WERE TAKEN AND ATTACHED TO CHART. SAFETY PRECAUTIONS FOR FALL INITIATED, CALL LIGHT IN REACH, WILL CONTINUE MONITORING PT.
--- NOTE | 2018-01-24 19:59 | NUR ---
RN NOTES: ASSISTED GANTRY RIGGER IN CHECKING PT'S VS PT IS RESTLESS IN BED, FAMILY AT BED SIDE. VS TAKEN AND RECORDED. ALSO FOLLOWED UP WITH [facility] REGARDING EST WATER HAULER TIME, PER [facility] THEY HAD A PROBLEM WITH THE DISPATCH ALL THEIR AMBULANCE WERE PICKING UP PT IN THE HOSPITAL, AND THEY WERE STUCK IN [facility]. INFORMED FAMILY ABOUT THE SITUATION, FAMILY ALREADY COMPLAINING ABOUT WAITING FOR THE AMBULANCE FOR MORE THAN 2HRS. ALSO PT'S REQUESTING TO GET A COPY OF DC PAPER WORKS, ALL LABS AND NOTES OF DOCTOR, AND DRUG LIST TO BE SPECIFIC. HE STATED THAT THERE WERE SO MANY TIMES DURING PT'S MULTIPLE ADMISSIONS THAT THE NOTES OF MD AND MEDICATION GIVEN TO HER WERE INCORRECT. 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 INFORMED THAT THERE ARE DC PAPER WORKS THAT WILL BE PROVIDED TO THE FACILITY WERE PT WILL BE GOING, HOWEVER WOULD LIKE A COPY OF HIS OWN. INFORMED PT'S ABOUT GOING TO MEDICAL RECORDS AND REQUESTING FOR COPY. INSISTED THAT WE GIVE COPY TO HIM OF THESE RECORDS. CONTACTED POWER TOOL REPAIRER FOR 3W ABOUT POLICY OF PROVIDING COPY OF DC PAPER WORKS/RECORDS TO FAMILY MEMBER, PER [employer] CREW CHIEF [employer] TO PROVIDE COPY OF RECORDS. SPOKED TO RN TICKET COLLECTOR, ABOUT THESE, PER RN SUP OKAY TO GIVE COPY TO FAMILY MEMBER.
[2018-01-24 20:00] VITALS: BP_SYST 115; BP_DIAS 42; BP_DIAS 81
[2018-01-24 20:11] VITALS: BP 115/81
--- NOTE | 2018-01-24 20:35 | NUR ---
rn notes: contacted [facility] as pt's family very unhappy regarding the long wait for ambulance, spoked to hal of [facility], he stated everything is backed up and they cant really tell what is the time ambulance will be picking up the pt, he said around 45mins to an hour but he's really unsure. Pt's upset of the situation he called tran and finding a way to just get another ambulance to take over. rn adjustment supervisor stephen spoked to pt's , and also contacted [facility]. Stephen then spoke to Aneesh pt's , then finally decided to just go home and will come back, he stated to call him anytime once there's eta for ambulance so he can come back right away. Aneesh would like to be with his particularly during this transfer.
--- NOTE | 2018-01-24 20:40 | NUR ---
RN NOTES: PT ASKED FOR PT'S LAB RESULT, INFORMED PT THAT BASED ON THE LATEST LAB RESULT NA LEVEL IS 138, BUN 7, CA 8.1, (01/18/18) 01/24/18 GLUCOSE IN AM 327, THEN 85
[2018-01-24] MEDS: ATORVASTATIN 40 MG TABLET PO SCH (21:07)
[2018-01-24] MEDS: DONEPEZIL 5 MG TABLET PO SCH (21:07)
--- NOTE | 2018-01-24 21:12 | NUR ---
RN NOTES: DUE MEDS ADMINISTERED AT THIS TIME, PATTI PEREZ AT BED SIDE SITTING FOR THE PT, FOR SAFETY, PATTI WITNESS PATIENT TOOK THE MEDICATION
--- NOTE | 2018-01-24 21:14 | NUR ---
RN NOTES: RECEIVED CALL FROM [facility], STATED ETA IS 15MINS, 2130PM AMB[facility] WILL BE HERE. WILL CALL PT'S
--- NOTE | 2018-01-24 21:30 | NUR ---
RN NOTES: [facility] ALREADY HERE, REPORT GIVEN TO Dru [facility]CK[facility]T [facility], [employer] PAPER WORKS PREPARED BY DAY RN HANDED OVER TO [facility], VS TAKEN FOLLOWS 115/75 HR 74 RR 18 SPO2 94%, INFORMED [facility] TO WAIT FOR PT'S BEFORE BRINGING THE PT TO THE FACILITY. BELONGING LIST COMPLETED.
[2018-01-24 21:47] VITALS: BP 115/75
--- NOTE | 2018-01-24 22:03 | NUR ---
DC NOTES: PT'S AND SON AT BED SIDE WILL RIDE INSIDE THE AMBULANCE. DC PAPER WORKS HANDED OVER TO [facility] AND A COPY GIVEN TO CAMERON, PT'S , BELONGINGS COMPLETED SENT WITH PT'S SON (FLOWER AND MAGAZINE). DOUBLE CHECKED DRAWER, NOTHING WAS FOUND, NO BELONGING LEFT INSIDE DRAWER. IV ACCESS REMOVED AND APPLIED PRESSURED DRESSING, ARMBAND/WRISTBAND REMOVED. PT IS MEDICALLY CLEARED IN STABLE CONDITION, ACCOMPANIED BY FAMILY AND PARAMEDICS.
== END 2018-01-24 22:05 | DRG 871 ==
LOC: TELE 17:19 → MED 01-15 10:21 → MEDSG2 01-19 12:06
PROVIDERS: ADMIT Psychiatry & Neurology Psychosomatic Medicine; ATTEND Nurse Practitioner Acute Care
DX: A41.9 Sepsis, unspecified organism (principal); G93.41 Metabolic encephalopathy; N17.0 Acute kidney failure with tubular necrosis; N39.0 Urinary tract infection, site not specified; E87.2 Acidosis; B96.20 Unspecified Escherichia coli [E. coli] as the cause of diseases classified elsewhere; E87.6 Hypokalemia; E78.5 Hyperlipidemia, unspecified; E11.65 Type 2 diabetes mellitus with hyperglycemia; F32.9 Major depressive disorder, single episode, unspecified; F41.9 Anxiety disorder, unspecified; Z79.4 Long term (current) use of insulin; F29 Unspecified psychosis not due to a substance or known physiological condition; F01.50 Vascular dementia, unspecified severity, without behavioral disturbance, psychotic disturbance, mood disturbance, and anxiety; R65.20 Severe sepsis without septic shock; G25.3 Myoclonus
CPT/HCPCS: 36415; 70450-TC; 80048-TC; 80061-TC; 82962-TC; 83605-TC; 83735-TC; 84100-TC; 84443-TC; 85025-TC; 87081-TC; 97116-TC; 97530-TC; A4216; A4606; A6402; J0696; J1815; J3490; J7030; Z7610